=== PATIENT | female | born 1980 | race Caucasian/White ===

== ENCOUNTER → 2018-01-12 11:40 | Outpatient (CLI) | payer OTHER, MEDICAID, SELFPAY ==
[2018-01-12 12:27] LABS: Add Manual Diff / Slide Review NO; Basophils Percent Auto 0.9 % (0-2); Eosinophils Percent Auto 3.7 % (2-4); Hematocrit 42.3 % (36-46); Hemoglobin 14.7 g/dL (12.0-16.0); Mean Corpuscular HGB Conc 34.8 % (30-36); Mean Corpuscular Volume 91.8 fL (80-100); Monocytes Percent Auto 6.3 % (3-14); Neutrophils Absolute Auto 4500 /uL (3000-5900); Neutrophils Percent Auto 59.1 % (50-75); Platelet Count 298 X10^3/uL (150-400); White Blood Cell Count 7.6 X10^3/uL (4.5-11.0)
[2018-01-12 13:16] LABS: Thyroid Stimulating Hormone 1.17 uIU/mL (0.47-4.68)
== END ==
PROVIDERS: PCP Physician Assistant; Visit Provider Nurse Practitioner Family
DX: F41.9 Anxiety disorder, unspecified (principal)
CPT/HCPCS: 36415; 84443; 85025

== ENCOUNTER 2018-05-08 13:41 | Emergency (ER) | payer OTHER, MEDICAID, SELFPAY ==
[2018-05-08 13:49] VITALS: BP 117/80; PULSE 74; RESP 22; TEMP 36.8; O2SAT 100; BMI 38.0
--- NOTE | 2018-05-08 14:28 | ED.BACK ---
HPI - Back Pain/Injury General Chief Complaint: Back Pain/Injury Stated Complaint: back and abdominal pain since Time Seen by Provider: 05/08/18 14:12 Source: patient Mode of arrival: ambulatory Limitations: no limitations History of Present Illness HPI Narrative: Patient is a 38-year-old female who presents with right-sided back pain and leg pain. She works as a store stock help she is not sure exactly what happened. As she was seen evaluated at [facility] on 05/05/2018 for the same. She was given Toradol she was given a prescription for Percocet is discharged home. She said Percocet is not helping. She has been trying to stretch. The which was doing this morning when the pain got worse and she felt maybe she heard something pop. His she has radiating pain down the lateral side of her leg. She is denies is urinary or stool incontinence. MD Complaint: back pain Related Data Home Medications Medication Instructions Recorded Confirmed [TURMERIC CURCUMIN] 1 tab PO QDAY #0 09/27/17 05/08/18 alprazolam 0.5 mg tablet 0.5 mg PO BEDTIME tab 03/03/18 05/08/18 Vitamin D3 1 cap PO DAILY 05/08/18 05/08/18 amitriptyline 30 mg PO HS 05/08/18 05/08/18 cyclobenzaprine 2 tab PO HS PRN 05/08/18 05/08/18 oxycodone-acetaminophen 1 tab PO PRN PRN 05/08/18 05/08/18 Previous Rx's Medication Instructions Recorded cyclobenzaprine 10 mg PO TID PRN #14 tab 05/08/18 meloxicam 15 mg PO DAILY #14 tab 05/08/18 Allergies Allergy/AdvReac Type Severity Reaction Status Date / Time hydromorphone [From DILAUDID] Allergy Intermediate Headache Verified 05/08/18 13:54 and grinding teeth morphine [MORPHINE] Allergy Unknown HIVES Verified 05/08/18 13:54 hydrocodone [HYDROCODONE] AdvReac Intermediate UPSET Verified 05/08/18 13:54 STOMACH oxycodone [OXYCODONE] AdvReac Intermediate N/V Verified 05/08/18 13:54 Review of Systems Review of Systems GENERAL: Denies chills, fatigue, malaise, fever, sweats, travel HEENT: Denies sinus pain, ear pain, sore throat, difficulty swallowing, neck pain RESPIRATORY: Denies dyspnea, cough, wheezing, hemoptysis, sputum. CARDIOVASCULAR: Denies chest pain, palpitations, orthopnea, edema GASTROINTESTINAL: Denies nausea, vomiting, abdominal pain, diarrhea, constipation, melena. : Denies dysuria, frequency, incontinence, hematuria, urinary retention, flank pain. MUSCULOSKELETAL: See HPI SKIN: No rash, no erythema, no pruritus NEUROLOGIC: Denies weakness, dizziness, headache, numbness, change in speech, confusion PSYCHIATRIC: No concerning psychosocial issues. 12 point review of systems is negative except for those stated above and HPI [facility] Medical History Arthritis (Chronic Unknown) Asthma (Chronic Unknown) Carpal tunnel syndrome (Chronic Unknown) Degenerative disc disease (Chronic Unknown) Fibromyalgia (Chronic ~2015) Shoulder pain (Chronic Unknown) Hx of endometriosis (Resolved Unknown) Surgical History H/O laparoscopy (Resolved) H/O: (Resolved) History of bilateral tubal ligation (Resolved Unknown) Hx of abdominal hysterectomy (Resolved 05/2013) Hx of appendectomy (Resolved 10/2017) Hx of laminectomy (Resolved Unknown) Social History Smoking Status: Former smoker alcohol intake: current (social 1-3 times a year) substance use type: does not use Exam Initial Vital Signs Initial Vital Signs: Vital Signs Temperature 98.2 F 05/08/18 13:49 Pulse Rate 74 05/08/18 13:49 Respiratory Rate 22 05/08/18 13:49 Blood Pressure 117/80 05/08/18 13:49 Pulse Oximetry 100 05/08/18 13:49 GENERAL: Patient appears in pain crawled up CARDIOVASCULAR: peripheral pulses in tact, cap refill <2 sec RESPIRATORY: No respiratory distress, speaks in full sentences without difficulty BACK: Right lateral lumbar pain some midline pain no step-offs. Sensation in lower extremities is intact and equal able to move toes strength equal bilaterally EXTREMITIES: Normal range of motion, no clubbing or edema. Neurovascularly intact NEUROLOGICAL: Cranial nerves II through XII grossly intact. Normal gait and speech. SKIN: Warm, dry, no petechiae, no rashes or lesions. Course Orders Ordered: Discontinued Medications Diazepam (Valium) 5 mg PO NOW ONE Stop: 05/08/18 14:40 Last Admin: 05/08/18 14:47 Dose: 5 mg Ketorolac Tromethamine (Toradol) 60 mg IM NOW ONE Stop: 05/08/18 14:40 Last Admin: 05/08/18 14:46 Dose: 60 mg Vital Signs - 8 hr 05/08/18 13:49 05/08/18 16:03 Temperature 98.2 F Pulse Rate 74 56 L Respiratory Rate 22 13 Blood Pressure 117/80 101/60 Pulse Oximetry 100 99 MDM - Back Pain/Injury Medical Records Attestation: I reviewed the patient's medical records. From [facility] Lab Data Urine Dip Bedside Urine Glucose Negative Bedside Urine Bilirubin - Negative Bedside Urine Ketone - Negative Urine Specific [place] 1.015 Bedside Urine Occult Blood - Negative Bedside Urine pH 8.0 Bedside Urine Protein - Negative Bedside Urine Urobilinogen - Negative Bedside Urine Nitrite - Negative Bedside Urine Leukocytes - Negative Esterase Discharge Plan Departure Patient Disposition: Home Clinical Impression: Acute back pain with sciatica Discharge Date/Time: 05/08/18 16:06 Interventions: ED Discharge Assessment Last Done: 05/08/18 16:03 Instructions: DI for Back Pain With Sciatica Activity Restrictions/Additional Instructions: *You have been diagnosed with back pain *What to do: Heating pad, increase activity as tolerated light activity is encouraged, may require stretching *Continue to take medications as directed: Faxed to [facility] in [place] Meloxicam once a day as with do not take with other NSAIDS cyclobenzaprine 10 mg 3 times a day if needed for muscle spasm *Follow up with your primary care provider in 2-3 days *Return to ER if you should have urinary or stool incontinence, weakness or any new, worsening or concerning symptoms Prescriptions: New meloxicam 15 mg tablet 15 mg PO DAILY Qty: 14 RF: 0 cyclobenzaprine 5 mg tablet 10 mg PO TID PRN (Reason: muscle spasm) Qty: 14 RF: 0 No Action alprazolam 0.5 mg tablet 0.5 mg PO BEDTIME RF: 0 [TURMERIC CURCUMIN] 1 tab PO QDAY Qty: 0 RF: 0 oxycodone-acetaminophen 5-325 mg tablet 1 tab PO PRN PRN (Reason: Pain, Moderate) RF: 0 amitriptyline 10 MG tablet 30 mg PO HS RF: 0 Vitamin D3 1 cap PO DAILY RF: 0 cyclobenzaprine 5 MG tablet 2 tab PO HS PRN (Reason: Spasms) RF: 0
[2018-05-08] MEDS: KETOROLAC 60 MG/2 ML VIAL IM (14:46)
[2018-05-08] MEDS: diazePAM 5 MG TABLET PO (14:47)
[2018-05-08 16:03] VITALS: BP 101/60; PULSE 56; RESP 13; O2SAT 99
--- NOTE | 2018-05-08 16:06 | PC.NURSE ---
pt scripts sent to [facility] in [place], requested to be sent at [facility] [place] faxed per pt request
--- NOTE | 2018-05-11 17:16 | PC.NURSE ---
follow up calls, n/a
== END 2018-05-08 16:06 | disposition home or self-care (01) ==
PROVIDERS: Emergency Provider Emergency Medicine; Family Provider Physician Assistant; PCP Family Medicine
DX: S01.511A Laceration without foreign body of lip, initial encounter (principal)
CPT/HCPCS: 81003; 96372; 99283; J1885

== ENCOUNTER → 2018-05-09 11:33 | Outpatient (CLI) | payer OTHER, MEDICAID, SELFPAY ==
--- NOTE | 2018-05-09 11:39 | DI.RAD.S_ITS ---
PROCEDURE: XR SACRUM COCCYX MIN 2V INDICATIONS: acute hip/pelvic pain with hx of trauma TECHNIQUE: 3 views of the sacrum and coccyx acquired. COMPARISON: None. FINDINGS: Bones: No fractures or dislocations. No suspicious bony lesions. Soft tissues: Visualized bowel gas pattern is normal. No suspicious soft tissue densities. IMPRESSION: No visualized acute fracture or dislocation. However, if clinical concern and/or pain persist, short interval imaging followup in 7-10 days is recommended, as occult injury cannot be definitively excluded. Dictated by: Jovanna Hurt M.D. on 05/09/2018 at 15:57 Approved by: Jovanna Hurt M.D. on 05/09/2018 at 15:57
--- NOTE | 2018-05-09 11:39 | DI.RAD.S_ITS ---
PROCEDURE: XR LUMBAR SPINE 2-3V INDICATIONS: acute hip/pelvic pain with hx of trauma TECHNIQUE: 3 views of the lumbar spine were acquired. COMPARISON: None. FINDINGS: Bones: 5 [id number] vertebrae are present. There is multilevel tracer retrolisthesis of the lumbar spine. There severe disc and foraminal narrowing at L5-S1, moderate at L4-5. No vertebral body compression fractures. No suspicious bony lesions. Soft tissues: Overlying bowel gas pattern is normal. No suspicious soft tissue calcifications. IMPRESSION: Prominent degenerative hip and foraminal narrowing at L4-5 and L5-S1. Dictated by: Jovanna Hurt M.D. on 05/09/2018 at 15:54 Approved by: Jovanna Hurt M.D. on 05/09/2018 at 15:57
[2018-05-09 12:21] LABS: Add Manual Diff / Slide Review NO; Basophils Percent Auto 0.5 % (0-2); Eosinophils Percent Auto 4.3 % (2-4); Hematocrit 45.7 % (36-46); Hemoglobin 15.5 g/dL (12.0-16.0); Lymphocytes Percent Auto 31.7 % (25-40); Mean Corpuscular HGB Conc 33.8 % (30-36); Mean Corpuscular Volume 91.7 fL (80-100); Monocytes Percent Auto 5.6 % (3-14); Neutrophils Absolute Auto 4900 /uL (3000-5900); Neutrophils Percent Auto 57.9 % (50-75); Platelet Count 316 X10^3/uL (150-400); Red Blood Cell Count 4.98 X10^6/uL (4.0-5.2); Red Cell Distribution Width 13.1 % (11.6-14.8); White Blood Cell Count 8.5 X10^3/uL (4.5-11.0)
[2018-05-09 12:40] LABS: Hemoglobin A1C% w Est Avg Glu 5.3 % (4.0-6.0)
[2018-05-09 13:23] LABS: Alanine Aminotransferase 36 IU/L (9-52); Albumin 4.2 g/dL (3.5-5.0); Albumin Globulin Ratio 1.4 (1.0-2.8); Alkaline Phosphatase 53 U/L (38-126); Aspartate Aminotransferase 28 IU/L (14-36); BUN Creatinine Ratio 25.7 (6-22); Bilirubin Total 0.4 mg/dL (0.2-1.3); Bilirubin Unconjugated 0.1 mg/dL (0.0-1.1); Blood Urea Nitrogen 18 mg/dL (7-17); C-Reactive Protein Quant 0.6 mg/dL (<1.0); Calcium 8.9 mg/dL (8.4-10.2); Carbon Dioxide 28 mmol/L (22-32); Chloride 103 mmol/L (98-107); Cholesterol 205 mg/dL (140-199); Estimated Glomerular Filt Rate > 60.0 mL/min (>60); Globulin 2.9 g/dL (1.7-4.1); Glucose 85 mg/dL (70-100); HDL Cholesterol 57 mg/dL (40-60); LDL Cholesterol Calculated 92 mg/dL (<100); Potassium 4.2 mmol/L (3.4-5.1); Sodium 143 mmol/L (137-145); Total Protein 7.1 g/dL (6.3-8.2); Triglycerides 278 mg/dL (35-150)
[2018-05-09 15:14] LABS: Vitamin D 25 Hydroxy (D3) 39.9 ng/mL (30.0-100.0)
[2018-05-09 20:28] LABS: HEMOLYSIS 19 (0-50); Vitamin B12 524 pg/mL (239-931)
== END ==
PROVIDERS: PCP Family Medicine; Visit Provider Nurse Practitioner Family
DX: M54.40 Lumbago with sciatica, unspecified side (principal); R10.9 Unspecified abdominal pain
CPT/HCPCS: 36415; 72100; 72220; 80053; 80061; 80076; 82306; 82607; 83036; 85025; 86140

== ENCOUNTER → 2018-05-12 13:36 | Outpatient (CLI) | payer OTHER, MEDICAID, SELFPAY ==
--- NOTE | 2018-05-12 13:38 | DI.CT.S_ITS ---
PROCEDURE: CT LUMBAR SPINE WO CON INDICATIONS: Low back pain. Right leg radicular pain TECHNIQUE: Noncontrast 3 mm thick sections acquired from the T12 level to the sacrum. Sagittal and coronal reformats were constructed. For radiation dose reduction, the following was used: automated exposure control. COMPARISON: [facility], , L-SPINE WITHOUT CONTRAST, 05/23/2014, 10:43. FINDINGS: Image quality: Excellent. Bones: There is normal bony alignment. No acute vertebral body compression fractures. No suspicious lytic or blastic bony lesions. Central spinal caliber is of normal overall caliber. No pars defects. T12-L1: Normal appearance L1-L2: Normal appearance L2-L3: Normal appearance L3-L4: Normal appearance L4-L5: Loss of disc height. Mild, diffuse disc bulge. Mild bilateral facet hypertrophy. Moderate narrowing of the central canal. Mild right and moderate left neural foraminal narrowing. No definite neural impingement. L5-S1: Loss of disc height. Mild, diffuse disc bulge. Mild bilateral facet hypertrophy. Mild narrowing of the central canal. Severe bilateral neural foraminal narrowing with slight flattening deformity of the exiting L5 nerve roots. Soft tissues: No retroperitoneal masses or hematomas. Visualized aorta is normal in caliber. IMPRESSION: 1. Moderate L4-L5 and L5-S1 degenerative disc disease. 2. Mild bilateral L4-L5 and L5-S1 facet arthropathy. 3. Moderate L4-L5 central canal narrowing. Mild L5-S1 central canal narrowing. 4. Severe bilateral L5-S1 neural foraminal narrowing. Mild right and moderate left L4-L5 neural foraminal narrowing. 5. Flat and deformity the exiting L5 nerve roots bilaterally secondary to neural foraminal narrowing. Please correlate with clinical data. Dictated by: Annel Del Valle MD, PhD on 05/12/2018 at 15:53 Approved by: Annel Del Valle MD, PhD on 05/12/2018 at 15:58
--- NOTE | 2018-05-12 13:38 | DI.CT.S_ITS ---
PROCEDURE: CT ABDOMEN PELVIS W CON INDICATIONS: General abdominal pain and hx of adhesions TECHNIQUE: After the administration of oral and intravenous contrast, 5 mm thick sections acquired from the diaphragms to the symphysis. 5 mm thick coronal and sagittal reformats were performed. For radiation dose reduction, the following was used: automated exposure control, adjustment of mA and/or kV according to patient size. COMPARISON: [facility], CT, ABDOMEN/PELVIS WITH CONTRAST, 01/03/2017, 19:40. FINDINGS: Image quality: Excellent. ABDOMEN: Lung bases: Lung bases are clear. Heart size is normal. Solid organs: Liver is normal in size and enhancement. Gallbladder is partially contracted. Biliary system is non-dilated. Pancreas enhances normally. Spleen is normal in size and enhancement. No adrenal nodules. Kidneys are normal in size and enhancement, without hydronephrosis. Peritoneum and bowel: Stomach, small bowel, and colon loops are normal in caliber and wall thickness. No free fluid or air. Nodes and vessels: No retroperitoneal or mesenteric adenopathy. Aorta and inferior vena cava are normal in caliber. Miscellaneous: No ventral hernias. PELVIS: Genitourinary: Bladder wall thickness is normal. Apparent prior hysterectomy. Miscellaneous: No inguinal hernias or adenopathy. Bones: No suspicious bony lesions. No vertebral body compression fractures. IMPRESSION: No sign of intestinal obstruction or perforation. The gallbladder is partially contracted but shows no inflammation. At the right lower quadrant no CT evidence of acute appendicitis is present. There are no areas of inflamed diverticula. A definite source of current symptomatology is not seen. Prior hysterectomy. Dictated by: Leoncio Troncoso M.D. on 05/12/2018 at 16:28 Approved by: Leoncio Troncoso M.D. on 05/12/2018 at 16:29
== END ==
PROVIDERS: PCP Family Medicine; Visit Provider Nurse Practitioner Family
DX: M51.16 Intervertebral disc disorders with radiculopathy, lumbar region (principal); R10.84 Generalized abdominal pain; M51.17 Intervertebral disc disorders with radiculopathy, lumbosacral region; M47.26 Other spondylosis with radiculopathy, lumbar region; M47.27 Other spondylosis with radiculopathy, lumbosacral region; M48.061 Spinal stenosis, lumbar region without neurogenic claudication; M48.07 Spinal stenosis, lumbosacral region
CPT/HCPCS: 72131; 74177; Q9967

== ENCOUNTER → 2018-07-07 19:47 | Outpatient (CLI) | payer OTHER, MEDICAID, SELFPAY ==
--- NOTE | 2018-07-07 19:50 | DI.MRI.S_ITS ---
PROCEDURE: MR LUMBAR SPINE WO CON INDICATIONS: Acute back pain and hx of adhesions TECHNIQUE: Noncontrast sagittal T1 spin echo and T2 fast echo, sagittal STIR, axial T1 and T2 fast spin echo through the lumbar spine. In cases with scoliosis, additional coronal T2 fast spin echo may be performed. COMPARISON: [facility], , L-SPINE WITHOUT CONTRAST, 05/23/2014, 10:43. FINDINGS: Image quality: Excellent. Alignment and Curvature: There is normal bony alignment. Bone Marrow: Marrow is of normal overall signal. No acute vertebral body compression fractures. Spinal Cord: Conus medullaris terminates at the T12 level. Visualized cord demonstrates normal signal and size. Paraspinous Soft Tissues: No paravertebral masses. L1-L2: Normal appearance. L2-L3: Normal appearance. L3-L4: No canal stenosis. Moderate facet ligamentum flavum hypertrophy. No neuroforaminal narrowing. These findings are unchanged when compared with the study dated 05/23/14. L4-L5: Patient is status post left hemilaminectomy. Moderate disc desiccation and height loss. Broad-based disc bulge. Moderate facet ligamentum flavum hypertrophy. No canal stenosis. No neuroforaminal narrowing. These findings are unchanged when compared with the study dated 05/23/14. L5-S1: Moderate disc desiccation and height loss. Broad-based disc bulge. Moderate facet hypertrophy. No canal stenosis. Mild right and moderate left neuroforaminal stenosis. These findings are unchanged. IMPRESSION: 1. Disc desiccation and height loss in the lower lumbar spine unchanged in extent when compared with the study dated 05/23/14. 2. Stable postsurgical changes and moderate left neuroforaminal stenosis at L5-S1 when compared with the prior study. 3. No canal stenosis of the lumbar spine. No new neuroforaminal stenosis. Dictated by: Mariposa Miller M.D. on 07/10/2018 at 10:50 Approved by: Mariposa Miller M.D. on 07/10/2018 at 10:58
== END ==
PROVIDERS: PCP Family Medicine; Visit Provider Family Medicine
DX: M51.16 Intervertebral disc disorders with radiculopathy, lumbar region (principal); M51.17 Intervertebral disc disorders with radiculopathy, lumbosacral region
CPT/HCPCS: 72148

== ENCOUNTER → 2019-02-13 09:24 | Outpatient (CLI) | payer OTHER, MEDICAID, SELFPAY ==
--- NOTE | 2019-02-13 09:25 | DI.RAD.S_ITS ---
PROCEDURE: XR KNEE LT 3V INDICATIONS: left knee pain exacerbation TECHNIQUE: 3 views of the knee were acquired. COMPARISON: None. FINDINGS: Bones: No fractures or dislocations. No suspicious bony lesions. Mild osteoarthritic changes are present. Soft tissues: No joint effusion. No suspicious soft tissue calcifications. IMPRESSION: Mild osteoarthritis. Dictated by: Erica Angel M.D. on 02/13/2019 at 11:12 Approved by: Erica Angel M.D. on 02/13/2019 at 11:13
== END ==
PROVIDERS: PCP Family Medicine; Visit Provider Nurse Practitioner Family
DX: M25.562 Pain in left knee (principal); M17.12 Unilateral primary osteoarthritis, left knee
CPT/HCPCS: 73562

== ENCOUNTER → 2019-05-10 13:57 | Outpatient (CLI) | payer OTHER, MEDICAID, SELFPAY ==
--- NOTE | 2019-05-10 14:21 | DI.MRI.S_ITS ---
PROCEDURE: MR LUMBAR SPINE WO CON INDICATIONS: Low back pain TECHNIQUE: Noncontrast sagittal T1 spin echo and T2 fast echo, sagittal STIR, axial T1 and T2 fast spin echo through the lumbar spine. In cases with scoliosis, additional coronal T2 fast spin echo may be performed. COMPARISON: [facility], MR, MR LUMBAR SPINE WO CON, 07/07/2018, 20:01. [facility], CR, XR LUMBAR SPINE WITH OLBIQUES PLUS FLEXION EXTENSION, 04/18/2019, 15:52. FINDINGS: Image quality: Excellent. Alignment and Curvature: 5 lumbar type vertebral bodies are present by plain film. There is normal bony alignment. Bone Marrow: Marrow is of normal overall signal. No acute vertebral body compression fractures. Moderate reactive signal within the adjacent to the L5-S1 intervertebral disc. Mild reactive signal within the endplates adjacent to the L4-L5 intervertebral disc. Left L4-L5 hemilaminotomy. Spinal Cord: Conus medullaris terminates at the lower L1 level. Visualized cord demonstrates normal signal and size. Paraspinous Soft Tissues: No paravertebral masses. L1-L2: Mild facet and ligamentum flavum hypertrophy. No significant canal, nor foraminal stenosis. L2-L3: Mild facet and ligament flavum hypertrophy. No significant canal, nor foraminal stenosis. L3-L4: Mild facet and ligamentum flavum hypertrophy. No significant canal, nor foraminal stenosis. L4-L5: Moderate disc height loss and desiccation. Mild diffuse disc bulge with superimposed small central protrusion. Mild facet hypertrophy bilaterally. No significant canal stenosis. Mild right and increased, moderate left subarticular foraminal stenosis. L5-S1: Moderate disc height loss and desiccation. Mild diffuse disc bulge. Mild bilateral facet hypertrophy. Mild canal stenosis. Mild right and moderate left subarticular foraminal stenosis. No change. IMPRESSION: 1. Multilevel degenerative disc and facet disease, as well as ligamentum flavum hypertrophy and epidural lipomatosis. 2. Mild multilevel canal stenoses. 3. Multilevel foraminal stenoses, worst at L4-L5 and L5-S1 on the left, where there are moderate foraminal stenoses present. Dictated by: Manuel Guzman M.D. on 05/10/2019 at 15:54 Approved by: Manuel Guzman M.D. on 05/10/2019 at 15:59
== END ==
PROVIDERS: Family Provider Family Medicine; PCP Family Medicine; Visit Provider Physical Medicine & Rehabilitation Pain Medicine
DX: M54.5 Low back pain (principal); M51.36 Other intervertebral disc degeneration, lumbar region; M51.37 Other intervertebral disc degeneration, lumbosacral region; M48.061 Spinal stenosis, lumbar region without neurogenic claudication; M48.07 Spinal stenosis, lumbosacral region; E88.2 Lipomatosis, not elsewhere classified
CPT/HCPCS: 72148

== ENCOUNTER → 2019-06-21 10:39 | Outpatient (CLI) | payer OTHER, MEDICAID, SELFPAY ==
[2019-06-21 11:34] LABS: BUN Creatinine Ratio 24.3 (6-22); Blood Urea Nitrogen 17 mg/dL (7-17); Calcium 9.1 mg/dL (8.4-10.2); Carbon Dioxide 25 mmol/L (22-32); Chloride 107 mmol/L (98-107); Estimated Glomerular Filt Rate > 60.0 mL/min (>60); Glucose 95 mg/dL (70-100); HEMOLYSIS < 15 (0-50); Potassium 4.3 mmol/L (3.4-5.1); Sodium 140 mmol/L (137-145)
[2019-06-21 11:52] LABS: Vitamin D 25 Hydroxy (D3) 42.7 ng/mL (30.0-100.0)
== END ==
PROVIDERS: Family Provider Family Medicine; PCP Family Medicine; Visit Provider Student in an Organized Health Care Education/Training Program
DX: E55.9 Vitamin D deficiency, unspecified (principal); Z79.1 Long term (current) use of non-steroidal anti-inflammatories (NSAID)
CPT/HCPCS: 36415; 80048; 82306

== ENCOUNTER 2019-10-03 16:09 | Emergency (ER) | payer OTHER, MEDICAID, SELFPAY ==
[2019-10-03 16:13] VITALS: BP 147/77; PULSE 79; RESP 16; TEMP 36.5; O2SAT 100; BMI 39.1
--- NOTE | 2019-10-03 16:34 | DI.RAD.S_ITS ---
PROCEDURE: XR KNEE LT 3V INDICATIONS: L knee pain, knee buckled. TECHNIQUE: 3 views of the knee were acquired. COMPARISON: [facility], CR, XR KNEE ARTHRITIC SERIES LT, 09/27/2019, 12:51. [facility], CR, XR KNEE LT 3V, 02/13/2019, 9:25. FINDINGS: Bones: No fractures or dislocations. No suspicious bony lesions. Soft tissues: Mild joint effusion. No suspicious soft tissue calcifications. IMPRESSION: Mild effusion. No visualized acute fracture or dislocation. However, if clinical concern and/or pain persist, short interval imaging followup in 7-10 days is recommended, as occult injury cannot be definitively excluded. Dictated by: Jovanna Hurt M.D. on 10/03/2019 at 16:51 Approved by: Jovanna Hurt M.D. on 10/03/2019 at 16:54
--- NOTE | 2019-10-03 17:25 | ED.LOWEXIN ---
HPI - Extremity Injury (Lower) <DERECK Rodriguez - Last Filed: 10/03/19 20:50> General Chief Complaint: Extremity Injury, Lower Stated Complaint: left knee buckled on her Time Seen by Provider: 10/03/19 16:11 Source: patient Mode of arrival: Ambulatory Limitations: no limitations History of Present Illness HPI Narrative: 39yo male presents to the emergency department complaining of left knee pain. She states she has a history of osteoarthritis in this knee is undergoing physical therapy in taking walks a cam. However, yesterday she stepped down and her knee was hyperextended, she reported significant pain immediately of a 03/10 with swelling and ecchymosis. She states the pain is worse with weight-bearing and movement. Patient states she tried to get into her orthopedic but was told to continue with physical therapy. Patient denies any other concerns such as hip pain, head trauma, chest pain, shortness of breath, nausea, vomiting, diarrhea, or any other concerns. Related Data Home Medications Medication Instructions Recorded Confirmed Vitamin D3 1 cap PO DAILY 05/08/18 06/21/19 Turmeric/Curcumin See Rx Instructions .ROUTE .COMPLEX 05/09/18 06/21/19 omega-3 fatty acids 1,000 mg 1,000 mg PO DAILY 08/18/18 10/03/19 capsule multivitamin See Rx Instructions .ROUTE .COMPLEX 10/03/19 Previous Rx's Medication Instructions Recorded alprazolam 0.5 mg tablet 0.5 mg PO BEDTIME #15 tab 06/21/19 cyclobenzaprine 10 mg tablet 10 mg PO BEDTIME PRN #30 tab 06/21/19 meloxicam 15 mg tablet 15 mg PO DAILY PRN #90 tab 06/21/19 lidocaine 5 % topical patch 1 patch TOP DAILY #30 each 07/17/19 amitriptyline 50 mg tablet 50 mg PO DAILY #30 tab 09/14/19 hydrocodone-acetaminophen [[place]] 1 tab PO Q8H PRN #5 tab 10/03/19 Allergies Allergy/AdvReac Type Severity Reaction Status Date / Time hydromorphone [From DILAUDID] Allergy Intermediate Headache Verified 10/03/19 16:21 and grinding teeth morphine [MORPHINE] Allergy Intermediate HIVES Verified 06/21/19 09:51 Review of Systems <DERECK Rodriguez - Last Filed: 10/03/19 20:50> Review of Systems Narrative: REVIEW OF SYSTEMS: GENERAL: Denies fever or chills. HENT: No head trauma. EYES: No double vision or vision loss. CARDIOVASCULAR: No chest pain or syncope. RESPIRATORY: No shortness of breath or cough. GASTROINTESTINAL: No nausea, vomiting, diarrhea, or constipation. MUSCULOSKELETAL: Complains of left knee pain, see HPI. INTEGUMENTARY: No rash, lesions, or pruritus. NEURO: No numbness, tingling. PSYCH: No behavior or mood changes. Patient History <DERECK Rodriguez - Last Filed: 10/03/19 20:50> Medical History Arthritis (Chronic Unknown) Asthma (Chronic Unknown) Carpal tunnel syndrome (Chronic Unknown) Colitis (Inactive) Degenerative disc disease (Chronic Unknown) Fibromyalgia (Chronic ~2015) Hx of endometriosis (Resolved Unknown) Shoulder pain (Chronic Unknown) Surgical History H/O laparoscopy (Resolved) H/O: (Resolved) History of bilateral tubal ligation (Resolved Unknown) Hx of abdominal hysterectomy (Resolved 05/2013) Hx of appendectomy (Resolved 10/2017) Hx of laminectomy (Resolved Unknown) Family History Grandmother Breast cancer Social History Smoking Status: Former smoker second hand exposure: Yes alcohol intake: current substance use type: does not use Smoking Status: Former smoker alcohol intake frequency: 0-2 drinks per day Substance Use Type: marijuana Exam <DERECK Rodriguez - Last Filed: 10/03/19 20:50> Initial Vital Signs Initial Vital Signs: Vital Signs Temperature 97.7 F 10/03/19 16:13 Pulse Rate 79 10/03/19 16:13 Respiratory Rate 16 10/03/19 16:13 Blood Pressure 147/77 H 10/03/19 16:13 Pulse Oximetry 100 10/03/19 16:13 PHYSICAL EXAMINATION: GENERAL: Well groomed, alert, and cooperative. Answers questions promptly and appropriately. Vital signs noted. HENT: Normocephalic, atraumatic. EYES: Symmetrical, sclera white, no periorbital swelling. CARDIOVASCULAR: S1 and S2 sounds normal. Regular rate and rhythm, no murmurs, clicks, or bruits. No pedal edema. RESPIRATORY: Normal respiratory rate, trachea midline, airway patent. No stridor, nasal flaring or accessory muscle use. Lungs are clear in all [place]. MUSCULOSKELETAL: Ecchymosis noted around patella, tenderness to medial aspect of joint line. No effusion noted around superior part of left knee. Decreased flexion due to pain, and able to perform drawer test due to decreased range of motion. Positive Sarwat sign medial meniscus. Patient walks with limp due to pain. EXTREMITIES: CMS intact. Pedal pulses 2+ and intact bilaterally. SKIN: Warm, dry, soft, appropriate color for ethnicity. No lesions, rashes, or wounds. NEURO: Alert and Oriented X 3. No sensory deficits. PSYCH: Appropriate affect and mood. <Blair Delvalle DO - Last Filed: 10/04/19 07:05> Initial Vital Signs Initial Vital Signs: Vital Signs Temperature 97.7 F 10/03/19 16:13 Pulse Rate 79 10/03/19 16:13 Respiratory Rate 16 10/03/19 16:13 Blood Pressure 147/77 H 10/03/19 16:13 Pulse Oximetry 100 10/03/19 16:13 Course <DERECK Rodriguez - Last Filed: 10/03/19 20:50> Orders Ordered: Discontinued Medications Hydrocodone Bitart/Acetaminophen ([place] 5/325) 1 tab PO NOW ONE Stop: 10/03/19 17:22 Last Admin: 10/03/19 17:37 Dose: 1 tab Documented by: ELIUD Ketorolac Tromethamine (Toradol) 30 mg IM NOW ONE Stop: 10/03/19 17:22 Last Admin: 10/03/19 17:38 Dose: 30 mg Documented by: ELIUD Vital Signs Vital signs: Vital Signs - 8 hr 10/03/19 16:13 10/03/19 18:17 Temperature 97.7 F Pulse Rate 79 89 Respiratory Rate 16 12 Blood Pressure 147/77 H Blood Pressure [Right Arm] 157/95 H Pulse Oximetry 100 100 <Blair Delvalle DO - Last Filed: 10/04/19 07:05> Orders Ordered: Discontinued Medications Hydrocodone Bitart/Acetaminophen ([place] 5/325) 1 tab PO NOW ONE Stop: 10/03/19 17:22 Last Admin: 10/03/19 17:37 Dose: 1 tab Documented by: ELIUD Ketorolac Tromethamine (Toradol) 30 mg IM NOW ONE Stop: 10/03/19 17:22 Last Admin: 10/03/19 17:38 Dose: 30 mg Documented by: ELIUD Vital Signs Vital signs: Vital Signs - 8 hr 10/03/19 16:13 10/03/19 18:17 Temperature 97.7 F Pulse Rate 79 89 Respiratory Rate 16 12 Blood Pressure 147/77 H Blood Pressure [Right Arm] 157/95 H Pulse Oximetry 100 100 MDM - Extremity Injury (Lower) <DERECK Rodriguez - Last Filed: 10/03/19 20:50> Medical Records Attestation: I reviewed the patient's medical records. Lab Data Attestation: I reviewed the patient's lab results. Imaging Data Extremity x-ray #1: Radiologist's Impression: [address] [id number] XRay Report Signed Patient: Osiris Aponte CMR#: [id number] : 1980Acct:[id number] Age/Sex: 39 / FDate of Service: 10/03/19 Loc: ED Accession Number: [id number] Procedure: XR knee LT 3V Ordering Provider: Sonia Haji PROCEDURE: XR KNEE LT 3V INDICATIONS: L knee pain, knee buckled. TECHNIQUE: 3 views of the knee were acquired. COMPARISON: [facility], CR, XR KNEE ARTHRITIC SERIES LT, 09/27/2019, 12:51. [facility], CR, XR KNEE LT 3V, 02/13/2019, 9:25. FINDINGS: Bones: No fractures or dislocations. No suspicious bony lesions. Soft tissues: Mild joint effusion. No suspicious soft tissue calcifications. IMPRESSION: Mild effusion. No visualized acute fracture or dislocation. However, if clinical concern and/or pain persist, short interval imaging followup in 7-10 days is recommended, as occult injury cannot be definitively excluded. Dictated by: Jovanna Hurt M.D. on 10/03/2019 at 16:51 Approved by: Jovanna Hurt M.D. on 10/03/2019 at 16:54 MDM Narrative Medical decision making narrative: This is a 39-year-old female presenting to the emergency department for a left knee pain after hyper extension of knee with noticeable swelling and bruising. X-rays negative for any fractures. Knee is tender on examination and has decreased flexion due to pain. Patient is a history of osteoarthritis but this appears to be an additional injury. Differential includes most likely meniscus injury, ligamentous injury such as ACL or PCL, and soft tissue bruising. Patient was encouraged to wear a hinged brace for support to prevent her knee from continuing to give out. Patient was encouraged to follow up with her orthopedic in the next few weeks for re-evaluation. She was encouraged to continue physical therapy but inform her therapist of this current injury. Patient was given a small dose of pain medication to help with severe pain at this time as she is already taking meloxicam and cyclobenzaprine. Patient was encouraged to return emergency department for any new or worsening symptoms. Patient agreed to plan of care verbalized understanding. Discharge Plan Departure Patient Disposition: Home Clinical Impression: Knee pain, left Qualifiers: Chronicity: acute Qualified Code(s): M25.562 - Pain in left knee Discharge Date/Time: 10/03/19 18:20 Instructions: DI for Knee Pain Activity Restrictions/Additional Instructions: Thank you for entrusting me with your care today. As discussed, your x-rays negative for any fractures. I suggest using a hinged brace to help with any support, this also allows you to keep your range of motion. Please follow-up with your orthopedic as suggested in the next 1-2 weeks for further evaluation. Please continue with physical therapy. Return to the emergency department for any new or worsening symptoms such as severe calf pain, abdominal pain, uncontrollable vomiting, fevers, or any other concerns. I have prescribed a small dose of Vicodin which has been sent to [facility] in [place], this is a narcotic medication, this medication can make you drowsy. Do not drive while using this medication or perform activities that require mental alertness. These medications can also make you constipated, please use xsoi-vhd-hjhqmul docusate sodium as needed for constipation. Prescriptions: New hydrocodone-acetaminophen [[place]] 5-325 mg tablet 1 tab PO Q8H PRN (Reason: pain) Qty: 5 RF: 0 No Action Turmeric/Curcumin See Rx Instructions .ROUTE .COMPLEX RF: 0 omega-3 fatty acids [Fish Oil Concentrate] 1,000 mg capsule 1,000 mg PO DAILY RF: 0 lidocaine 5 % adhesive patch,medicated 1 patch TOP DAILY Qty: 30 RF: 0 amitriptyline 50 mg tablet 50 mg PO DAILY Qty: 30 RF: 5 cyclobenzaprine 10 mg tablet 10 mg PO BEDTIME PRN (Reason: muscle spasm) Qty: 30 RF: 2 meloxicam 15 mg tablet 15 mg PO DAILY PRN (Reason: muscle spasm) Qty: 90 RF: 0 alprazolam 0.5 mg tablet 0.5 mg PO BEDTIME Qty: 15 RF: 2 multivitamin See Rx Instructions .ROUTE .COMPLEX RF: 0 Vitamin D3 1 cap PO DAILY RF: 0 Referrals: Aubrey Summers MD [Primary Care Provider] - <Blair Delvalle DO - Last Filed: 10/04/19 07:05> Sign Out Provider Sign Out Attestation: Dr Delvalle Co-Sign Statement: I was available for consultation during this patient's emergency department visit. This chart is signed by myself for administrative purposes only. I did not have direct contact with this patient during this visit. They were seen independently by the APC.
[2019-10-03] MEDS: HYDROCODONE/ACET 5/325 TABLET 1 TAB PO (17:37)
[2019-10-03] MEDS: KETOROLAC 60 MG/2 ML VIAL 30 MG IM (17:38)
[2019-10-03 18:17] VITALS: BP 157/95; PULSE 89; RESP 12; O2SAT 100
== END 2019-10-03 18:20 | disposition home or self-care (01) ==
PROVIDERS: Emergency Provider Nurse Practitioner; Family Provider Family Medicine; PCP Student in an Organized Health Care Education/Training Program
DX: M25.562 Pain in left knee (principal)
CPT/HCPCS: 73562; 96372; 99283; 99284; J1885

== ENCOUNTER → 2019-12-03 15:16 | Outpatient (CLI) | payer OTHER, MEDICAID, SELFPAY ==
[2019-12-03 15:49] LABS: Appearance Urine UA CLEAR; Bilirubin Urine UA NEGATIVE (NEGATIVE); Color Urine UA YELLOW; Glucose Urine UA NEGATIVE (Negative); Ketones Urine UA NEGATIVE (NEGATIVE); Leukocyte Esterase Urine UA 1+ (NEGATIVE); Nitrite Urine UA NEGATIVE (Negative); Occult Blood Urine UA TRACE-LYSED (Negative); Protein Urine UA NEGATIVE (Negative); Specific Gravity Urine UA 1.015 (1.000-1.035); Urobilinogen Urine UA 0.2 E.U./dL (0.2)
[2019-12-03 15:53] LABS: pH Urine UA 7.5 (4.5-8.0)
[2019-12-03 15:56] LABS: Bacteria Urine Occasional (0-1); Culture Indicated Urine Specimen Cultured; RBC Urine 0-1/HPF (0-5/HPF); WBC Urine 0-1/HPF (0-5/HPF)
== END ==
PROVIDERS: Family Provider Family Medicine; PCP Student in an Organized Health Care Education/Training Program; Referring Provider Student in an Organized Health Care Education/Training Program; Visit Provider Student in an Organized Health Care Education/Training Program
DX: R39.89 Other symptoms and signs involving the genitourinary system (principal)
CPT/HCPCS: 81001; 87077; 87086; 87186

== ENCOUNTER → 2020-03-28 18:31 | Outpatient (CLI) | payer OTHER, MEDICAID, SELFPAY ==
--- NOTE | 2020-03-28 18:33 | DI.MRI.S_ITS ---
PROCEDURE: MR CERVICAL SPINE WO CON INDICATIONS: Neck pain; bilateral arm parasthesia TECHNIQUE: Noncontrast sagittal T1 spin echo and T2 fast spin echo, sagittal STIR, foraminal oblique sagittal T2 fast spin echo, and axial gradient echo or T2 fast spin echo through the cervical spine. COMPARISON: None. FINDINGS: Image quality: Excellent. Alignment and Curvature: There is normal bony alignment. Bone Marrow: Marrow demonstrates normal overall signal. Spinal Cord: Visualized spinal cord has normal size and signal. No cerebellar tonsillar herniation. Paraspinous Soft Tissues: No paravertebral masses. Prevertebral soft tissues are normal in thickness. C2-C3: No canal stenosis or foraminal stenosis. C3-C4: Moderate diffuse disc bulge mildly indenting on the ventral cord. Mild central canal stenosis. AP diameter of the canal is 9 mm. Mild bilateral uncovertebral joint hypertrophy and foraminal disc bulges. Mild right facet hypertrophy. Mild and right and ixwv-nu-rtnwmojz left foraminal stenosis. C4-C5: Very minimal central posterior osteophyte versus disc protrusion. No canal stenosis. Bilateral facet hypertrophy. Mild right foraminal narrowing. C5-C6: Diffuse disc bulge. No central canal stenosis. AP diameter of the canal is 1.1 cm. Bilateral uncovertebral joint hypertrophy. Bilateral facet hypertrophy. Moderate to severe right foraminal narrowing with impingement on the right C6 nerve root. Mild left foraminal narrowing. C6-C7: Mild disc bulge. No significant central canal stenosis. Bilateral uncovertebral joint hypertrophy and facet hypertrophy. Moderate right foraminal narrowing with flattening deformity on the exiting right C7 nerve root. Moderate to severe left foraminal narrowing with left C7 nerve root impingement. C7-T1: No canal stenosis or foraminal stenosis. IMPRESSION: 1. Diffuse cervical spondylitic change. 2. At C3-C4, there is mild central canal stenosis. 3. At C5-C6, there is moderate to severe right foraminal narrowing. 4. At C6-C7, there is moderate right foraminal narrowing and moderate to severe left foraminal narrowing. Dictated by: Delbert Sorto M.D. on 03/31/2020 at 9:37 Approved by: Delbert Sorto M.D. on 03/31/2020 at 9:46
--- NOTE | 2020-03-28 18:33 | DI.MRI.S_ITS ---
PROCEDURE: MR THORACIC SPINE WO CON INDICATIONS: Neck pain; bilateral arm parasthesia TECHNIQUE: Noncontrast sagittal T1 spine echo and T2 fast spin echo, sagittal STIR, axial T1 and T2 fast spin echo through the thoracic spine. COMPARISON: [facility], , MR CERVICAL SPINE WO CON, 03/28/2020, 18:48. FINDINGS: Image quality: Excellent. Alignment and Curvature: There is normal bony alignment. Bone Marrow: Marrow is of normal overall signal. No acute vertebral body compression fractures. Spinal Cord: Visualized spinal cord is normal in size and signal. Paraspinous Soft Tissues: No paravertebral masses. Miscellaneous: On axial images, central canal and foramina appear widely patent at all scanned levels. There is a small left paracentral disc protrusion at T5-T6 without canal stenosis. Reference image 03/05 (sagittal T2). IMPRESSION: 1. Small left paracentral disc protrusion at T5-T6 without canal stenosis, of uncertain clinical significance. 2. No canal stenosis or foraminal stenosis. Dictated by: Delbert Sorto M.D. on 03/31/2020 at 11:54 Approved by: Delbert Sorto M.D. on 03/31/2020 at 12:01
== END ==
PROVIDERS: Family Provider Family Medicine; PCP Student in an Organized Health Care Education/Training Program; Referring Provider Student in an Organized Health Care Education/Training Program; Visit Provider Student in an Organized Health Care Education/Training Program
DX: M54.2 Cervicalgia (principal); M48.02 Spinal stenosis, cervical region; M47.812 Spondylosis without myelopathy or radiculopathy, cervical region; M51.24 Other intervertebral disc displacement, thoracic region; R20.2 Paresthesia of skin; M54.9 Dorsalgia, unspecified
CPT/HCPCS: 72141; 72146

== ENCOUNTER → 2020-05-13 18:20 | Outpatient (CLI) | payer OTHER, MEDICAID, SELFPAY ==
--- NOTE | 2020-05-13 18:24 | DI.RAD.S_ITS ---
PROCEDURE: XR CERVICAL SPINE 4V OR 5V INDICATIONS: cervical pain TECHNIQUE: 5 views of the cervical spine acquired. COMPARISON: [facility], MR, MR CERVICAL SPINE WO CON, 03/28/2020, 18:48. FINDINGS: Bones: No fractures or dislocations to the superior endplate of T1 level. Oblique images demonstrate mild right greater than left bony foraminal stenoses most pronounced at C5-6 and C6-7. Straightening of cervical lordosis which may be due to patient positioning and/or concurrent muscle spasms. Multilevel cervical spondylitic changes C3-4 through C6-7. Soft tissues: No prevertebral soft tissue swelling. IMPRESSION: 1. Cervical spine without acute osseous abnormalities. Multilevel cervical spondylosis. 2. Mild right greater than left bony neuroforaminal stenosis at C5-6 and C6-7. 3. Mild straightening of normal cervical lordosis likely related to positioning and/or concurrent muscle spasms. Dictated by: Joesph Teague M.D. on 05/14/2020 at 9:16 Approved by: Joesph Teague M.D. on 05/14/2020 at 9:20
--- NOTE | 2020-05-13 18:24 | DI.RAD.S_ITS ---
PROCEDURE: XR THORACIC SPINE 3V INDICATIONS: thoracic pain TECHNIQUE: 3 views of the thoracic spine were acquired. COMPARISON: None. FINDINGS: Bones: No fractures or dislocations. No suspicious bony lesions. 12 pairs of ribs are noted, and appear intact where visualized. Minimal thoracic spondylitic changes seen throughout the thoracic spine. Findings are most pronounced in the mid and lower thoracic spine. Soft tissues: No paravertebral stripe thickening. IMPRESSION: Thoracic spine without acute osseous abnormalities. Minimal multilevel thoracic spondylosis. Dictated by: Joesph Teague M.D. on 05/14/2020 at 9:20 Approved by: Joesph Teague M.D. on 05/14/2020 at 9:21
--- NOTE | 2020-05-13 18:24 | DI.RAD.S_ITS ---
PROCEDURE: XR LUMBAR SPINE MIN 4V INDICATIONS: LBP TECHNIQUE: 5 views of the lumbar spine were acquired. COMPARISON: [facility], , XR LUMBAR SPINE 2-3V, 05/09/2018, 11:32. FINDINGS: Bones: 5 nonrib-bearing vertebrae are present. There is multilevel trace retrolisthesis. Moderate to severe disc and foraminal narrowing is present L5-S1, moderate to severe disc space narrowing and aqgn-xz-pysdoizf foraminal narrowing at L4-5. No vertebral body compression fractures. No suspicious bony lesions. Soft tissues: Overlying bowel gas pattern is normal. No suspicious soft tissue calcifications. Oblique images: No pars defects. IMPRESSION: Degenerative changes most notable at L5-S1. Dictated by: Jovanna Hurt M.D. on 05/13/2020 at 18:43 Approved by: Jovanna Hurt M.D. on 05/13/2020 at 18:44
== END ==
PROVIDERS: Family Provider Family Medicine; PCP Student in an Organized Health Care Education/Training Program; Referring Provider Physical Medicine & Rehabilitation; Visit Provider Physical Medicine & Rehabilitation
DX: M54.5 Low back pain (principal); M47.817 Spondylosis without myelopathy or radiculopathy, lumbosacral region; M54.2 Cervicalgia; M47.812 Spondylosis without myelopathy or radiculopathy, cervical region; M48.02 Spinal stenosis, cervical region; M54.6 Pain in thoracic spine; R20.2 Paresthesia of skin
CPT/HCPCS: 72050; 72072; 72110

== ENCOUNTER → 2020-06-02 13:31 | Outpatient (CLI) | payer OTHER, MEDICAID, SELFPAY ==
[2020-06-04 08:19] LABS: COVID19 Sendout Not Detected (Not Detect)
== END ==
PROVIDERS: Family Provider Family Medicine; PCP Student in an Organized Health Care Education/Training Program; Visit Provider Physician Assistant
DX: Z11.59 Encounter for screening for other viral diseases (principal)
CPT/HCPCS: 87635

== ENCOUNTER 2020-06-05 12:01 | Outpatient (CLI) | payer OTHER, MEDICAID, SELFPAY ==
[2020-06-05] VITALS (9 sets, daily range): BP systolic 105–155; BP diastolic 61–85; PULSE 12–84; RESP 12–96; TEMP 36.2; O2SAT 96–100
--- NOTE | 2020-06-05 12:03 | DI.RAD.S_ITS ---
PROCEDURE: PAIN L/SI FACET INJ/BLK 1STL INDICATIONS: SPONDYLOSIS COMPARISON: [facility], CR, XR LUMBAR SPINE MIN 4V, 05/13/2020, 18:13. FINDINGS: Fluoroscopic spot filming was performed to verify placement of spinal needles at the left L4-5 and L5-S1 level(s), as labeled on the films. Appropriate location(s) of the needle tip(s) was confirmed by injection of iodinated contrast. IMPRESSION: Intraprocedural examination within normal limits. Dictated by: Scott Vazquez M.D. on 06/05/2020 at 13:19 Approved by: Scott Vazquez M.D. on 06/05/2020 at 13:20
[2020-06-05] MEDS: fentaNYL 100 MCG/2 ML INJ 50 MCG IV (13:24)
[2020-06-05] MEDS: MIDAZOLAM 5 MG/5 ML VIAL IV (13:24)
[2020-06-05] MEDS: IOPAMIDOL 15 ML VIAL 3 ML INJ (13:30)
[2020-06-05] MEDS: BUPIVACAINE 0.5% (PF) VIAL 2 ML INJ (13:30)
[2020-06-05] MEDS: BETAMETHASONE 30 MG/5 ML MDV 12 MG INJ (13:30)
--- NOTE | 2020-06-05 13:40 | P.PCN_ITS ---
Date/Time/Diagnoses Date of procedure: 06/05/20 Time of procedure: 13:41 Pre-procedure diagnosis: 1. FACET ARTHROPATHY, 2. AXIAL LBP, 3. MULTILEVEL DDD Post-procedure diagnosis: same Procedure Notes Procedure: 1. FLUOROSCOPICALLY GUIDED CONTRAST CONTROLLED FACET JOINT INJECTIONS LEFT L4/5, L5/S1 Indications: Osiris is referred by Dr. Summers for treatment of Axial LBP Physician: Devin Malin Total Fluoroscopy time (seconds): 11 Total sedation minutes: 14 Complications: none Procedure in detail & Post-procedure care: FINDINGS Multilevel Facet Arthropathy with Clinically significant axial LBP DESCRIPTION OF PROCEDURE Fluoroscopically guided, contrast-controlled left L4/5, L5/S1 facet joint injections. Following review of allergy and review of potential side effects and complications, including, but not necessarily limited to, infection, allergic reaction, local tissue breakdown, stroke, temporary or permanent nerve injury, paralysis, and possible , the patient indicated that the patient understood and agreed to proceed. An informed consent document was signed by the patient, witnessed by a nurse, and placed in the patient's chart. Additionally, other t reatment options including medications, modalities, and physical therapy were reviewed with the patient. After review of previous anaesthesic history and IV conscious sedation the patient was deemed safe to proceed with today?s procedure with IV conscious sedation as ASA class II designation. Safety time-out was performed to confirm patient ID, procedure to be performed and site of procedure. IV sedation was accomplished with a combination of 2mg of Versed and 50mcg of Fentanylwas administered by the RN after DO order, titrated to patient comfort during the course of the procedure while the patient remained responsive to all verbal commands. In the prone position, following sterile prep and drape of the lumbar region, the posterior aspect of the left L4/5, L5/S1 facet joints were identified fluoroscopically. The skin was anesthetized via a 25-gauge 1.5-inch needle with 1% lidocaine solution into the corresponding facet joints. At this point, a 22- gauge 5-inch spinal needle was atraumatically introduced and advanced under fluoroscopic guidance into the corresponding facet joints. Following negative aspiration, injections of approximately 0.2-cc of Isovue 200 confirmed intera rticular placement without vascular uptake. Radiological data, including multiple fluoroscopic views of the lumbosacral spine, reveal a spinal needle at the left L4/5, L5/S1 facet joints. Subsequent views show flow of contrast material both superiorly and inferiorly within the joint space without vascular or intrathecal uptake. At this point, a total of 0.5cc including a mixture of 0.25cc Marcaine and 0.25cc betamethasone was injected without complication into each of the corresponding facet joints. The procedure tolerated the procedure well without signs or symptoms of complications prior to transfer to the recovery area continued monitoring without incident. The patient was then transferred to the recovery area where they were observed for an appropriate period of time after the injection. The patient reported a VAS score of 7 prior to the procedure and a post-procedure VAS of 0. POST OP INSTRUCTIONS The patient was provided a Pain Log to continue to record their response to the target-specific procedure prior to follow-up visit with their referring physician. Additionally, specific post-injection care instructions and a contact number to our office were provided if concerns arise regarding possible complications associated with the procedure are suspected.
== END 2020-06-05 14:25 | disposition home or self-care (01) ==
PROVIDERS: Family Provider Family Medicine; PCP Student in an Organized Health Care Education/Training Program; Referring Provider Physical Medicine & Rehabilitation; Visit Provider Physical Medicine & Rehabilitation
DX: M47.816 Spondylosis without myelopathy or radiculopathy, lumbar region (principal); M47.817 Spondylosis without myelopathy or radiculopathy, lumbosacral region; M54.5 Low back pain; M51.36 Other intervertebral disc degeneration, lumbar region; M51.37 Other intervertebral disc degeneration, lumbosacral region
CPT/HCPCS: 64493; 64494; 99152; J0702; J2250; J3010

== ENCOUNTER → 2020-06-16 15:46 | Outpatient (CLI) | payer OTHER, MEDICAID, SELFPAY ==
[2020-06-16 16:05] LABS: Appearance Urine UA CLEAR; Bilirubin Urine UA NEGATIVE (NEGATIVE); Color Urine UA YELLOW; Glucose Urine UA NEGATIVE (Negative); Ketones Urine UA NEGATIVE (NEGATIVE); Leukocyte Esterase Urine UA TRACE (NEGATIVE); Nitrite Urine UA NEGATIVE (Negative); Occult Blood Urine UA 1+ (Negative); Protein Urine UA NEGATIVE (Negative); Specific Gravity Urine UA 1.015 (1.000-1.035); Urobilinogen Urine UA 0.2 E.U./dL (0.2)
[2020-06-16 16:12] LABS: pH Urine UA 5.5 (4.5-8.0)
[2020-06-16 16:17] LABS: Bacteria Urine Occasional (0-1); Culture Indicated Urine Specimen Cultured; RBC Urine 1-5/HPF (0-5/HPF); Squamous Epithelial Cell Urine 0-1 /HPF (0-5/HPF); WBC Urine 5-10/HPF (0-5/HPF)
== END ==
PROVIDERS: Family Provider Family Medicine; PCP Student in an Organized Health Care Education/Training Program; Referring Provider Student in an Organized Health Care Education/Training Program; Visit Provider Student in an Organized Health Care Education/Training Program
DX: R30.0 Dysuria (principal)
CPT/HCPCS: 81001; 87077; 87086; 87186

== ENCOUNTER → 2020-09-12 16:46 | Outpatient (CLI) | payer OTHER, MEDICAID, SELFPAY ==
[2020-09-12 17:23] LABS: Appearance Urine UA CLEAR; Bilirubin Urine UA NEGATIVE (NEGATIVE); Color Urine UA YELLOW; Glucose Urine UA NEGATIVE (Negative); Ketones Urine UA NEGATIVE (NEGATIVE); Leukocyte Esterase Urine UA NEGATIVE (NEGATIVE); Nitrite Urine UA NEGATIVE (Negative); Occult Blood Urine UA 1+ (Negative); Protein Urine UA NEGATIVE (Negative); Urobilinogen Urine UA 0.2 E.U./dL (0.2)
[2020-09-12 17:28] LABS: pH Urine UA 6.5 (4.5-8.0)
[2020-09-12 17:37] LABS: Add Manual Diff / Slide Review NO; Basophils Absolute Auto 100 /uL (0-100); Basophils Percent Auto 0.6 % (0-2); Eosinophils Absolute Auto 200 /uL (0-450); Eosinophils Percent Auto 2.2 % (2-4); Hematocrit 44.3 % (36-46); Hemoglobin 14.6 g/dL (12.0-16.0); Lymphocytes Absolute Auto 2400 /uL (1100-4500); Lymphocytes Percent Auto 22.5 % (25-40); Mean Corpuscular Hemoglobin 30.1 PG (26-34); Mean Corpuscular Volume 91.4 fL (80-100); Monocytes Absolute Auto 500 /uL (0-900); Monocytes Percent Auto 4.9 % (3-14); Neutrophils Absolute Auto 7400 /uL (1500-7000); Neutrophils Percent Auto 69.8 % (50-75); Platelet Count 331 X10^3/uL (150-400); Red Blood Cell Count 4.85 X10^6/uL (4.0-5.2); Red Cell Distribution Width 13.1 % (11.6-14.8); White Blood Cell Count 10.6 X10^3/uL (4.5-11.0)
[2020-09-12 17:38] LABS: BUN Creatinine Ratio 24.6 (6-22); Blood Urea Nitrogen 17 mg/dL (7-17); C-Reactive Protein Quant 0.7 mg/dL (<1.0); Calcium 8.9 mg/dL (8.4-10.2); Carbon Dioxide 32 mmol/L (22-32); Chloride 102 mmol/L (98-107); Estimated Glomerular Filt Rate > 60.0 mL/min (>60); Glucose 94 mg/dL (70-100); HEMOLYSIS < 15 (0-50); Potassium 3.5 mmol/L (3.4-5.1); Sodium 137 mmol/L (137-145); Uric Acid 5.8 mg/dL (2.5-6.2)
[2020-09-12 17:42] LABS: Rheumatoid Factor < 8.6 IU/mL (<12.0)
[2020-09-12 17:48] LABS: Bacteria Urine Occasional (0-1); Culture Indicated Urine Cult Not Indicated; RBC Urine 10-30/HPF (0-5/HPF); Squamous Epithelial Cell Urine None Seen (0-5/HPF); WBC Urine 0-1/HPF (0-5/HPF)
[2020-09-12 18:00] LABS: Erythrocyte Sedimentation Rate 6 MM/HR (0-20)
[2020-09-12 18:23] LABS: Vitamin B12 561 pg/mL (239-931)
[2020-09-12 18:27] LABS: TSH w/ Reflex to FT4 1.37 uIU/mL (0.47-4.68)
[2020-09-15 14:43] LABS: ANA Screen, IFA Negative (.)
== END ==
PROVIDERS: Family Provider Family Medicine; PCP Student in an Organized Health Care Education/Training Program; Referring Provider Student in an Organized Health Care Education/Training Program; Visit Provider Student in an Organized Health Care Education/Training Program
DX: M13.0 Polyarthritis, unspecified (principal); M47.816 Spondylosis without myelopathy or radiculopathy, lumbar region; R20.2 Paresthesia of skin; R30.0 Dysuria
CPT/HCPCS: 36415; 80048; 81001; 82607; 84443; 84550; 85025; 85651; 86038; 86140; 86430

== ENCOUNTER → 2020-09-27 15:53 | Outpatient (CLI) | payer OTHER, MEDICAID, SELFPAY ==
[2020-09-27 16:03] LABS: Bacteria Urine None Seen
[2020-09-27 16:07] LABS: Appearance Urine UA CLEAR; Bilirubin Urine UA NEGATIVE (NEGATIVE); Color Urine UA YELLOW; Glucose Urine UA NEGATIVE (Negative); Ketones Urine UA NEGATIVE (NEGATIVE); Leukocyte Esterase Urine UA NEGATIVE (NEGATIVE); Nitrite Urine UA NEGATIVE (Negative); Occult Blood Urine UA TRACE-LYSED (Negative); Protein Urine UA NEGATIVE (Negative); Urobilinogen Urine UA 0.2 E.U./dL (0.2)
[2020-09-27 16:34] LABS: Culture Indicated Urine Cult Not Indicated; RBC Urine 1-5/HPF (0-5/HPF); WBC Urine 1-5/HPF (0-5/HPF)
== END ==
PROVIDERS: Family Provider Family Medicine; PCP Student in an Organized Health Care Education/Training Program; Referring Provider Student in an Organized Health Care Education/Training Program; Visit Provider Student in an Organized Health Care Education/Training Program
DX: R30.0 Dysuria (principal)
CPT/HCPCS: 81001

== ENCOUNTER → 2020-10-07 13:11 | Outpatient (CLI) | payer OTHER, MEDICAID, SELFPAY ==
[2020-10-07 14:34] LABS: COVID19 -Nasal RAPID Negative (Negative)
== END ==
PROVIDERS: Family Provider Family Medicine; PCP Student in an Organized Health Care Education/Training Program; Visit Provider Physical Medicine & Rehabilitation
DX: Z20.822 Contact with and (suspected) exposure to COVID-19 (principal)
CPT/HCPCS: 87635; C9803

== ENCOUNTER 2020-10-09 12:33 | Outpatient (CLI) | payer OTHER, MEDICAID, SELFPAY ==
[2020-10-09] VITALS (8 sets, daily range): BP systolic 112–140; BP diastolic 55–89; PULSE 74–88; RESP 16–20; TEMP 36.7; O2SAT 96–100
--- NOTE | 2020-10-09 12:33 | DI.RAD.S_ITS ---
PROCEDURE: PAIN SI JOINT INJECTION INDICATIONS: SACROILIAC PAIN COMPARISON: None. FINDINGS: Fluoroscopic spot filming was performed to verify placement of spinal needles at the left sacroiliac joint level(s), as labeled on the films. Appropriate location(s) of the needle tip(s) was confirmed by injection of iodinated contrast. IMPRESSION: Fluoroscopic guidance for sacroiliac joint injection. Please see procedural note for further details. Dictated by: Joesph Teague M.D. on 10/09/2020 at 14:54 Approved by: Joesph Teague M.D. on 10/09/2020 at 14:54
[2020-10-09] MEDS: MIDAZOLAM 5 MG/5 ML VIAL IV (13:38)
[2020-10-09] MEDS: fentaNYL 100 MCG/2 ML INJ 50 MCG IV (13:38)
[2020-10-09] MEDS: IOPAMIDOL 15 ML VIAL 3 ML INJ (13:40)
[2020-10-09] MEDS: BETAMETHASONE 30 MG/5 ML MDV 12 MG INJ (13:40)
[2020-10-09] MEDS: BUPIVACAINE 0.5% (PF) VIAL 2 ML INJ (13:40)
--- NOTE | 2020-10-09 13:50 | PM.PROC.IR.1 ---
Date/Time/Diagnoses Date of procedure: 10/09/20 Time of procedure: 13:50 Pre-procedure diagnosis: Sacroiliac Joint Pain/DJD Post-procedure diagnosis: same Procedure Notes Procedure: Fluoroscopically guided contrast controlled left sacroiliac joint injection Indications: Osiris is referred by Dr. Summers for treatment of left sacroiliac joint DJD Physician: Devin Malin Total Fluoroscopy time (seconds): 14 Total sedation minutes: 7 Complications: none Procedure in detail & Post-procedure care: DESCRIPTION OF PROCEDURE Fluoroscopic guided, contrast controlled left sacroiliac joint injection Following review of allergies and review of potential side effects and complications, including, but not necessarily limited to, infection, allergic reaction, local tissue breakdown, temporary as well as permanent nerve injury, paralysis, stroke and possible , the patient indicated that they understood and agreed to proceed. An informed consent was signed by the patient, witnessed by a nurse, and placed in the patient's chart. Additionally, other treatment options including modalities, medications, and physical therapy were reviewed with the patient. After review of previous anaesthesic history and IV conscious sedation the patient was deemed safe to proceed with today?s procedure with IV conscious sedation as ASA class II designation. Safety time-out was performed to confirm patient ID, procedure to be performed and site of procedure. IV sedation was accomplished with a combination of 2mg of Versed and 50mcg of Fentanyl administered by the RN after DO order, titrated to patient comfort during the course of the procedure while the patient remained responsive to all verbal commands. In the prone position following sterile prep and drape of the pelvic region, the hyper lucency on in the inferior aspect of the left sacroiliac joint was identified fluoroscopically the skin was anesthetized be a 25 gauge 1 eventual with approximately 2cc of 1% lidocaine solution. At this point, a 22 gauge 3inch spinal needle was atraumatically introduced and advanced under fluoroscopic guidance into the inferior aspect of the left sacroiliac joint. Following negative aspiration, approximately 0.3cc of Isovue-300 was injected confirming intra-articular placement without vascular uptake. Radiographic data, including multiple fluoroscopic views of the pelvis, reveals a spinal needle in the left sacroiliac joint hyper lucent zone. Subsequent view show flow contrast tear superiorly and inferiorly within the joint capsule without vascular intrathecal uptake. At this point a total of 1cc or 0.5% Marcaine was combined with 1cc of 6mg of betamethasone was injected without incident. The patient tolerated the procedure well without signs or symptoms of complications prior to transfer to the recovery area for further monitoring. The patient was then transferred to the recovery area with a bur observed for an appropriate time after the injection. The patient reverted a vas score of 7 prior to the procedure and postprocedure vas of 1. POSTOP INSTRUCTIONS The patient was provided with a pain like to continue to record the patient's response to the target specific procedure prior to the patient's follow-up visit with the referring physician. Additionally, specific post injection care instructions and a contact number to our office were provided if concerns arise regarding the possible complications associated with procedure are suspected.
== END 2020-10-09 14:10 | disposition home or self-care (01) ==
LOC: RAD 12:33
PROVIDERS: Family Provider Family Medicine; PCP Student in an Organized Health Care Education/Training Program; Referring Provider Physical Medicine & Rehabilitation; Visit Provider Physical Medicine & Rehabilitation
DX: M53.3 Sacrococcygeal disorders, not elsewhere classified (principal); M46.1 Sacroiliitis, not elsewhere classified
CPT/HCPCS: 27096; J0702; J2250; J3010

== ENCOUNTER → 2020-12-02 08:03 | Outpatient (CLI) | payer OTHER, MEDICAID, SELFPAY ==
[2020-12-02 15:09] LABS: COVID19 -Nasal RAPID Negative (Negative)
== END ==
PROVIDERS: Family Provider Family Medicine; PCP Student in an Organized Health Care Education/Training Program; Visit Provider Physical Medicine & Rehabilitation
DX: Z20.822 Contact with and (suspected) exposure to COVID-19 (principal)
CPT/HCPCS: 87635; C9803

== ENCOUNTER 2020-12-04 13:52 | Outpatient (CLI) | payer OTHER, MEDICAID, SELFPAY ==
[2020-12-04] VITALS (8 sets, daily range): BP systolic 123–161; BP diastolic 59–81; PULSE 76–99; RESP 12–21; TEMP 36.3; O2SAT 95–100
--- NOTE | 2020-12-04 13:55 | DI.RAD.S_ITS ---
PROCEDURE: PAIN L/SI FACET INJ/BLK 1STL INDICATIONS: SPONDYLOSIS COMPARISON: [facility], , PAIN L/SI FACET INJ/BLK 1STL, 06/05/2020, 13:28. FINDINGS: Fluoroscopic spot filming was performed to verify placement of spinal needles at the L4, L5, and S1 levels on the left, as labeled on the films. Appropriate location(s) of the needle tip(s) was confirmed by injection of iodinated contrast. IMPRESSION: Intraprocedural examination within normal limits. Dictated by: Scott Vazquez M.D. on 12/04/2020 at 14:47 Approved by: Scott Vazquez M.D. on 12/04/2020 at 14:47
[2020-12-04] MEDS: MIDAZOLAM 5 MG/5 ML VIAL IV (14:55)
[2020-12-04] MEDS: fentaNYL 100 MCG/2 ML INJ 50 MCG IV (14:55)
[2020-12-04] MEDS: BUPIVACAINE 0.5% (PF) VIAL 5 ML INJ (15:01)
[2020-12-04] MEDS: IOPAMIDOL 15 ML VIAL 3 ML INJ (15:01)
[2020-12-04] MEDS: LIDOCAINE 1% 20 ML 10 ML INJ (15:01)
--- NOTE | 2020-12-04 15:11 | P.PCN_ITS ---
Date/Time/Diagnoses Date of procedure: 12/04/20 Time of procedure: 15:12 Pre-procedure diagnosis: 1. FACET ARTHROPATHY Post-procedure diagnosis: same Procedure Notes Procedure: 1. Left L4, L5 and S1 MB BLOCKS Indications: Osiris is referred by Dr. Summers for treatment of Left Axial LBP. Physician: Devin Malin Total Fluoroscopy time (seconds): 5 Total sedation minutes: 10 Complications: none Procedure in detail & Post-procedure care: DESCRIPTION OF PROCEDURE Fluoroscopically guided, contrast-controlled left L4, L5 and S1 medial branch blocks with 0.5cc of 0.5% Marcaine. Following review of allergy and review of potential side effects and complications, including, but not necessarily limited to, infection, allergic reaction, local tissue breakdown, nerve injury, paralysis, stroke and possible , the patient indicated that the patient understood and agreed to proceed. An informed consent document was signed by the patient, witnessed by a nurse, and placed in the patient's chart. After review of previous anaesthesic history and IV conscious sedation the patient was deemed safe to proceed with today?s procedure with IV conscious sedation as ASA class II designation. Safety time-out was performed to confirm patient ID, procedure to be performed and site of procedure. IV sedation was accomplished with a combination of 2mg of Versed and 50mcg of Fentanyl was administered by the RN after DO order, titrated to patient comfort during the course of the procedure while the patient remained responsive to all verbal commands. In the prone position, following sterile prep and drape of the lumbar region, the left L4, L5 and S1 anatomical location of the medial branch of the dorsal ramus was identified fluoroscopically. Subsequently an anesthetic skin wheal using 1% lidocaine solution was initiated at each of the anatomical spots. Subsequently then a 22-gauge 3.5-inch spinal needle was atraumatically introduced and advanced under fluoroscopic guidance at each of the corresponding sites at the left L4, L5 and S1 MB. After negative aspiration, 0.2cc of Isovue 200 was injected, confirming placement without vascular or intrathecal uptake. Subsequently then 0.5cc of 0.5% Marcaine solution was injected at each of the corresponding sites at the left L4, L5 and S1 medial branch locations. The patient tolerated the procedure well without signs or symptoms of complications. The patient tolerated the procedure well without signs or symptoms of complications prior to transfer to the recovery area continued monitoring without incident. Post-procedure, the patient was monitored initiating provocative activities to measure the amount of relief from block of the facetogenic pain. The patient reported a VAS of 7 prior to the procedure and a post-procedure VAS of 1. It has been a pleasure to assist in the diagnostic and therapeutic care of your patient. POST OP INSTRUCTIONS The patient was provided with a Pain Log to complete over the next several hours and subsequent days prior to the patient's follow up with the ordering physician. If the patient has manager of project management relief to the solution applied, then they may be a candidate for medial branch rhizotomy. The patient is aware, was provided, once again, with a Pain Log and will follow up with the referring physician for review and clinical correlation.
== END 2020-12-04 15:30 | disposition home or self-care (01) ==
LOC: RAD 13:54
PROVIDERS: Family Provider Family Medicine; PCP Student in an Organized Health Care Education/Training Program; Referring Provider Physical Medicine & Rehabilitation; Visit Provider Physical Medicine & Rehabilitation
DX: M47.816 Spondylosis without myelopathy or radiculopathy, lumbar region (principal); M47.817 Spondylosis without myelopathy or radiculopathy, lumbosacral region
CPT/HCPCS: 64493; 64494; 99152; J2250; J3010

== ENCOUNTER → 2021-02-24 08:28 | Outpatient (CLI) | payer OTHER, MEDICAID, SELFPAY ==
[2021-02-24 14:47] LABS: COVID19 -Nasal RAPID Negative (Negative)
== END ==
PROVIDERS: Family Provider Family Medicine; PCP Student in an Organized Health Care Education/Training Program; Visit Provider Physical Medicine & Rehabilitation
DX: Z20.822 Contact with and (suspected) exposure to COVID-19 (principal)
CPT/HCPCS: 87635; C9803

== ENCOUNTER 2021-02-26 07:25 | Outpatient (CLI) | payer OTHER, MEDICAID, SELFPAY ==
[2021-02-26] VITALS (10 sets, daily range): BP systolic 126–142; BP diastolic 78–111; PULSE 81–100; RESP 14–18; TEMP 36.6; O2SAT 96–100
--- NOTE | 2021-02-26 07:27 | DI.RAD.S_ITS ---
PROCEDURE: PAIN L/S MED/LAT N RFA INDICATIONS: SPONDYLOSIS COMPARISON: None. FINDINGS: Fluoroscopic spot filming was performed to verify placement of spinal needles at the L4, L5, S1 level(s), as labeled on the films. Appropriate location(s) of the needle tip(s) was confirmed by injection of iodinated contrast. Dictated by: Jhony Robles M.D. on 02/26/2021 at 11:59 Approved by: Jhony Robles M.D. on 02/26/2021 at 12:00
[2021-02-26] MEDS: fentaNYL 100 MCG/2 ML INJ 50 MCG IV (08:20)
[2021-02-26] MEDS: BUPIVACAINE 0.5% (PF) VIAL 5 ML INJ (08:26)
[2021-02-26] MEDS: LIDOCAINE 1% 20 ML INJ (08:26)
[2021-02-26] MEDS: MIDAZOLAM 5 MG/5 ML VIAL IV (08:27)
--- NOTE | 2021-02-26 08:53 | P.PCN_ITS ---
Date/Time/Diagnoses Date of procedure: 02/26/21 Time of procedure: 08:53 Pre-procedure diagnosis: 1. RECALCITRANT FACET ARTHROPATHY Post-procedure diagnosis: same Procedure Notes Procedure: 1. LEFT L4 AND L5 MEDIAL BRANCH RADIOFREQUENCY NEUROTOMY AND LEFT S1 DORSAL RAMUS RADIOFREQUENCY NEUROTOMY, Indications: Osiris is referred by Dr. Summers for treatment of facet arthropathy. Physician: Devin Malin Total Fluoroscopy time (seconds): 11 Total sedation minutes: 23 Complications: none Procedure in detail & Post-procedure care: DESCRIPTION OF PROCEDURE Left L4 and L5 medial branch radiofrequency neurotomy and left S1 dorsal ramus branch radiofrequency neurotomy under fluoroscopy with conscious sedation. The patient is well known to this clinic having undergone previous facet injections with good but temporary relief. The patient has experienced appropriate, concordant relief with previous facet and median branch blocks but the patient's pain has been recalcitrant to further conservative measures. Therefore, based upon the patient's relief and persistent symptoms, the patient is considered an appropriate candidate for facet rhizotomy. All of the patient's questions regarding the risks versus benefits of the procedure, including, but not limited to, bleeding, infection, temporary as well as lasting nerve injury, paralysis, stroke, and , as well treatment alternatives were answered to satisfaction. After obtaining informed consent, denial of pertinent drug allergies, as well as being made aware of the potential risks of bleeding, infection, spinal cord trauma, paralysis, temporary and permanent nerve damage, seizure, stroke, and possible , the patient was brought to the fluoroscopy suite and positioned prone on the fluoroscopy table. The lumbar region was prepped with Betadine and covered with a fenestrated drape in the usual sterile fashion. Appropriate monitors applied including pulse oximeter, pulse, and blood pressure for regular monitoring throughout the procedure. IV sedation was accomplished with a combination of 3mg of Versed and 50mcg of Fentanyl titrated to patient comfort during the course of the procedure while the patient remained responsive to all verbal commands. After local infiltration using 1% lidocaine, under fluoroscopic guidance, a 10- cm RF insulated needle with a 10-mm active tip was positioned parallel to the junction of the left sacral ala and the superior articulating process where the S1 dorsal ramus resides. Needle placement was confirmed with sensory stimulation at 50 Hz, with motor stimulation of .5v on the left which produced local stimulation without radicular component. The stimulation was then increased to 2v with, once again, only local multifidus stimulation without radicular component. This was then followed by two discreet lesions performed at 80 degrees Celsius for 90 seconds each. The needle was then removed and the identical procedure was performed along the length of the left L5 medial branch with motor stimulation at .7v on the left. The identical procedure was once again performed along the length of the left L4 medial branch with motor stimulation of .5v on the left. The patient tolerated the procedure well without signs or symptoms of complications prior to transfer to the recovery area continued monitoring without incident. The patient was then transferred to the recovery area where they were observed for an appropriate period of time after the injection. The patient was then transferred to the recovery area where they were observed for an appropriate period of time after the injection. The patient reported a VAS score of 7 prior to the procedure and a post- procedure VAS of 0. POST OP INSTRUCTIONS The patient was provided a Pain Log to continue to record the patient's response to the target-specific procedure prior to the patient's follow-up visit with the referring physician. Additionally, specific post-injection care instructions and a contact number to our office were provided if concerns arise regarding possible complications associated with the procedure are suspected.
== END 2021-02-26 09:02 | disposition home or self-care (01) ==
LOC: RAD 07:26
PROVIDERS: Family Provider Student in an Organized Health Care Education/Training Program; PCP Student in an Organized Health Care Education/Training Program; Referring Provider Physical Medicine & Rehabilitation; Visit Provider Physical Medicine & Rehabilitation
DX: M47.816 Spondylosis without myelopathy or radiculopathy, lumbar region (principal); M47.817 Spondylosis without myelopathy or radiculopathy, lumbosacral region
CPT/HCPCS: 64635; 64636; 99152; J2250; J3010

== ENCOUNTER 2021-08-13 17:36 | Emergency (ER) | payer OTHER, MEDICAID, SELFPAY ==
[2021-08-13] VITALS (19 sets, daily range): BP systolic 118–184; BP diastolic 61–121; PULSE 75–99; RESP 14–37; TEMP 36.4; O2SAT 79–100; BMI 42.3
--- NOTE | 2021-08-13 18:14 | ED_ITS ---
HPI - General Adult General Chief complaint: Hypertension Stated complaint: BP Issues, Left Lung Pain, Throbbing Head Time Seen by Provider: 08/13/21 18:14 History of Present Illness HPI narrative: 41-year-old female former smoker presents with her significant other and a chief complaint of elevated blood pressure in the 180s over the past 24 hours or so along with headache and some left-sided chest pain. She states her headache has been gradually worsening over the past few days and seems to be squeezing in nature. She denies any obvious provocation or palliation. She denies any blurred vision, trouble speech or focal neurologic deficits. She has had no trauma or injury and denies any fever. She has no neck pain. She states it is moderate in intensity it did not seem to be helped by Tylenol. She states that she has had a left-sided chest pain earlier in the day but that is gone now. She denies any radiation of this discomfort and no obvious provocation or palliation, though it does seem to have gone away as her blood pressure drops. Related Data Home Medications Medication Instructions Recorded Confirmed Vitamin D3 1 cap PO DAILY 05/08/18 05/18/21 Turmeric/Curcumin See Rx Instructions .ROUTE .COMPLEX 05/09/18 05/18/21 omega-3 fatty acids 1,000 mg 1,000 mg PO DAILY 08/18/18 05/18/21 capsule (Fish Oil Concentrate) multivitamin See Rx Instructions .ROUTE .COMPLEX 10/03/19 05/18/21 naproxen sodium 220 mg capsule 220 mg PO BID PRN 08/04/20 05/18/21 (Aleve) Previous Rx's Medication Instructions Recorded lidocaine 5 % topical patch 1 patch TOP DAILY #30 each 07/17/19 amitriptyline 50 mg tablet 50 mg PO BEDTIME #90 tab 02/03/21 albuterol sulfate 90 mcg/actuation 2 puff INHALATION Q4-6H PRN #18 g 02/17/21 aerosol inhaler amitriptyline 25 mg tablet 25 mg PO BEDTIME #90 tab 03/31/21 cyclobenzaprine 10 mg tablet 10 mg PO TID PRN #30 tab 05/15/21 hydrocodone 5 mg-acetaminophen 325 1 - 2 tab PO DAILY PRN #10 tab 08/04/21 mg tablet ketorolac 10 mg tablet 10 mg PO Q6H PRN #14 tab 08/13/21 Allergies Allergy/AdvReac Type Severity Reaction Status Date / Time hydromorphone [From DILAUDID] Allergy Intermediate Headache Verified 05/18/21 08:10 and grinding teeth morphine [MORPHINE] Allergy Intermediate HIVES Verified 05/18/21 08:10 nortriptyline Allergy Intermediate severe Verified 05/18/21 08:10 anxiety buspirone AdvReac Intermediate Muscle pain Verified 05/18/21 08:10 Review of Systems Review of Systems Narrative: GENERAL: Denies chills, fatigue, malaise, fever, sweats. HEENT: Denies sinus pain, ear pain, sore throat, difficulty swallowing, dizziness. RESPIRATORY: Denies dyspnea, cough, wheezing, hemoptysis, sputum. CARDIOVASCULAR: See HPI GASTROINTESTINAL: Denies nausea, vomiting, abdominal pain, diarrhea, constipation, melena. : Denies dysuria, frequency, incontinence, hematuria, urinary retention. MUSCULOSKELETAL: denies weakness, joint pain, or bony pain SKIN: Denies rash, skin lesions, or other NEUROLOGIC: See HPI PSYCHIATRIC: No concerning psychosocial issues. 12 point review of systems is negative except for those stated above Patient History Medical History Arthritis (Unknown) Asthma (Unknown) Carpal tunnel syndrome (Unknown) Colitis Costochondritis Degenerative disc disease (Unknown) Facet arthropathy, lumbar Fibromyalgia (~2015) Hx of endometriosis (Unknown) Lumbar post-laminectomy syndrome Ovarian cyst Sacral dysfunction Shoulder pain (Unknown) Surgical History H/O laparoscopy H/O: History of bilateral tubal ligation (Unknown) Hx of abdominal hysterectomy (05/2013) Hx of appendectomy (10/2017) Hx of laminectomy (Unknown) Family History Grandmother Breast cancer Mother Hypertension Social History Smoking Status: Former smoker second hand exposure: Yes alcohol intake: current substance use type: does not use Smoking Status: Former smoker alcohol intake frequency: 0-2 drinks per day Substance Use Type: marijuana Exam Narrative Exam Narrative: GENERAL: [41] year old patient appears stated age. Well-developed patient, in mild distress. HEAD: Atraumatic. Normocephalic. EYES: Pupils equal round and reactive. Extraocular motions intact. No scleral icterus. No injection or drainage. ENT: Nose without bleeding, purulent drainage. Throat without erythema, tonsi llar hypertrophy or exudate. Airway patent. NECK: Trachea midline. Non tender CARDIOVASCULAR: Regular rate and rhythm without murmurs, gallops, or rubs. RESPIRATORY: Clear to auscultation. Breath sounds equal bilaterally. No wheezes, rales, or rhonchi. GASTROINTESTINAL: Abdomen soft, non-tender, nondistended. EXTREMITIES: No edema or joint tenderness. BACK: Nontender without deformity or crepitance. No flank tenderness. NEURO: AOx3. SKIN: No rash or erythema of visible areas NIH Stroke Scale 1a. LOC: Patient is alert and keenly responsive (0) 1b. LOC Questions: Patient answers both LOC questions accurately (0) 1c. LOC Commands: Patient performs both tasks correctly (0) 2. Best Gaze: Normal (0) 3. Visual: No visual loss (0) 4. Facial palsy: Normal symmetrical movements (0) 5. Motor arm: No drift (0) 6. Motor leg: No drift (0) 7. Limb ataxia: Absent (0) 8. Sensory: Normal (0) 9. Best language: No aphasia; normal (0) 10. Dysarthria: Normal (0) 11. Extinction and inattention: No abnormality (0) NIHSS: 0 Initial Vital Signs Initial Vital Signs: Vital Signs Temperature 97.6 F 08/13/21 17:39 Pulse Rate 99 H 08/13/21 17:39 Respiratory Rate 20 08/13/21 17:39 Blood Pressure 184/103 H 08/13/21 17:39 Pulse Oximetry 94 08/13/21 17:39 Course Orders Ordered: ED Orders 08/13/21 18:00 Urinalysis and Microscopic Stat 08/13/21 18:04 Complete Blood Count AUTO DIFF Stat Comprehensive Metabolic Panel Stat D Dimer Stat Magnesium Stat NT-proBNP (BNP-Adult 18+) Stat Troponin & CK Cardiac Panel Stat 08/13/21 18:15 XR chest 2V Stat EKG-12 Lead Stat 08/13/21 19:23 COVID19 -Nasal swab/Pre-Proc Stat 01/13/22 20:55 Troponin & CK Cardiac Panel Stat Discontinued Medications Sodium Chloride (Normal Saline 0.9%) 1,000 mls @ 125 mls/hr IV CONT ZANE Last Infusion: 08/13/21 22:19 Dose: 0 mls/hr Documented by: Admin: 08/13/21 18:20 Dose: 125 mls/hr Documented by: CAROLYN Ketorolac Tromethamine (Ketorolac 30 Mg/Ml Vial) 15 mg IV NOW ONE Stop: 08/13/21 20:06 Last Admin: 08/13/21 20:56 Dose: 15 mg Documented by: HAYDEE Reevaluation(s) Reevaluation #1: Patient has significant improvement in her headache after receiving Toradol. Reevaluation #2: On arrival blood pressure was still a bit elevated and patient was symptomatic, however soon after she checked in and for the duration her visit her blood pressure had normalized in the 120s to 140s and her chest pain did not return. Vital Signs Vital signs: Vital Signs - 8 hr 08/13/21 18:07 08/13/21 18:09 08/13/21 18:30 Pulse Rate 89 76 83 Respiratory Rate 14 18 Blood Pressure 144/74 H Pulse Oximetry 100 100 100 08/13/21 18:31 08/13/21 18:41 08/13/21 19:00 Pulse Rate 86 75 86 Respiratory Rate 23 15 15 Blood Pressure 156/121 H 140/72 Pulse Oximetry 100 100 99 08/13/21 19:01 08/13/21 19:35 08/13/21 19:36 Pulse Rate 85 76 76 Respiratory Rate 22 24 14 Blood Pressure 118/61 126/63 Pulse Oximetry 100 79 L 100 08/13/21 20:00 08/13/21 20:01 08/13/21 20:30 Pulse Rate 86 81 85 Respiratory Rate 22 19 16 Blood Pressure 149/83 H Pulse Oximetry 100 100 100 08/13/21 20:31 08/13/21 21:00 08/13/21 21:30 Pulse Rate 96 H 85 82 Respiratory Rate 37 H 17 15 Blood Pressure 124/63 129/73 Pulse Oximetry 100 98 97 08/13/21 21:31 08/13/21 22:00 08/13/21 22:01 Pulse Rate 75 82 82 Respiratory Rate 15 15 22 Blood Pressure 139/64 137/64 Pulse Oximetry 100 100 100 Medical Decision Making Lab Data Result diagrams: 08/13/21 18:04 08/13/21 18:04 Labs: Lab Results 08/13/21 08/13/21 08/13/21 Range/Units 18:00 18:04 18:04 WBC 12.3 H (4.5-11.0) X10^3/uL RBC 4.95 (4.0-5.2) X10^6/uL Hgb 15.1 (12.0-16.0) g/dL Hct 44.1 (36-46) % MCV 89.2 (80-100) fL MCH 30.5 (26-34) PG MCHC 34.2 (30-36) % RDW 13.3 (11.6-14.8) % Plt Count 344 (150-400) X10^3/uL Neut % (Auto) 66.6 (50-75) % Lymph % (Auto) 25.8 (25-40) % Tate % (Auto) 4.3 (3-14) % Eos % (Auto) 2.7 (2-4) % Baso % (Auto) 0.6 (0-2) % Neut # (Auto) 8200 H (0167-2854) /uL Lymph # (Auto) 3200 (3717-5710) /uL Tate # (Auto) 500 (0-900) /uL Eos # (Auto) 300 (0-450) /uL Baso # (Auto) 100 (0-100) /uL D-Dimer (<230) ng/mL Sodium 137 (137-145) mmol/L Potassium 3.9 (3.4-5.1) mmol/L Chloride 106 (98-107) mmol/L Carbon Dioxide 23 (22-32) mmol/L BUN 18 H (7-17) mg/dL Creatinine 0.74 (0.52-1.04) mg/dL Estimated GFR > 60.0 (>60) mL/min BUN/Creatinine Ratio 24.3 H (6-22) Glucose 98 (70-100) mg/dL Calcium 9.8 (8.4-10.2) mg/dL Magnesium 2.0 (1.6-2.3) mg/dL Total Bilirubin 0.4 (0.2-1.3) mg/dL AST 30 (14-36) IU/L ALT 26 (<35) IU/L Alkaline Phosphatase 78 (38-126) U/L Total Creatine Kinase 103 (30-135) U/L CK-MB (CK-2) 1.27 (<2.37) ng/mL CK-MB (CK-2) Rel Index 1.2 L (1.5-5.0) % Troponin I < 0.012 (0.01-0.034) ng/mL NT-Pro-B Natriuret Pep 17 (<125) pg/mL Total Protein 7.9 (6.3-8.2) g/dL Albumin 4.7 (3.5-5.0) g/dL Globulin 3.2 (1.7-4.1) g/dL Albumin/Globulin Ratio 1.5 (1.0-2.8) Urine Color Yellow Urine Appearance Clear Urine pH 5.5 (4.5-8.0) Ur Specific Nine[place] <=1.005 (1.000-1.035) Urine Protein Negative (Negative) Urine Glucose (UA) Negative (Negative) g/dL Urine Ketones Negative (NEGATIVE) Urine Occult Blood Trace-intact (Negative) Urine Nitrate Negative (Negative) Urine Bilirubin Negative (NEGATIVE) Urine Urobilinogen 0.2 (0.2) E.U./dL Ur Leukocyte Esterase Negative (NEGATIVE) Urine RBC 0-1/hpf (0-5/HPF) Urine WBC None seen (0-5/HPF) Urine Bacteria None seen (None) Ur Culture Indicated? Cult not indicated SARS-CoV-2 (PCR) (Negative) 08/13/21 08/13/21 08/13/21 Range/Units 18:04 19:23 20:55 WBC (4.5-11.0) X10^3/uL RBC (4.0-5.2) X10^6/uL Hgb (12.0-16.0) g/dL Hct (36-46) % MCV (80-100) fL MCH (26-34) PG MCHC (30-36) % RDW (11.6-14.8) % Plt Count (150-400) X10^3/uL Neut % (Auto) (50-75) % Lymph % (Auto) (25-40) % Tate % (Auto) (3-14) % Eos % (Auto) (2-4) % Baso % (Auto) (0-2) % Neut # (Auto) (3816-3564) /uL Lymph # (Auto) (9940-0767) /uL Tate # (Auto) (0-900) /uL Eos # (Auto) (0-450) /uL Baso # (Auto) (0-100) /uL D-Dimer 222 (<230) ng/mL Sodium (137-145) mmol/L Potassium (3.4-5.1) mmol/L Chloride (98-107) mmol/L Carbon Dioxide (22-32) mmol/L BUN (7-17) mg/dL Creatinine (0.52-1.04) mg/dL Estimated GFR (>60) mL/min BUN/Creatinine Ratio (6-22) Glucose (70-100) mg/dL Calcium (8.4-10.2) mg/dL Magnesium (1.6-2.3) mg/dL Total Bilirubin (0.2-1.3) mg/dL AST (14-36) IU/L ALT (<35) IU/L Alkaline Phosphatase (38-126) U/L Total Creatine Kinase 95 (30-135) U/L CK-MB (CK-2) TNP (<2.37) ng/mL CK-MB (CK-2) Rel Index TNP (1.5-5.0) % Troponin I < 0.012 (0.01-0.034) ng/mL NT-Pro-B Natriuret Pep (<125) pg/mL Total Protein (6.3-8.2) g/dL Albumin (3.5-5.0) g/dL Globulin (1.7-4.1) g/dL Albumin/Globulin Ratio (1.0-2.8) Urine Color Urine Appearance Urine pH (4.5-8.0) Ur Specific Nineveh (1.000-1.035) Urine Protein (Negative) Urine Glucose (UA) (Negative) g/dL Urine Ketones (NEGATIVE) Urine Occult Blood (Negative) Urine Nitrate (Negative) Urine Bilirubin (NEGATIVE) Urine Urobilinogen (0.2) E.U./dL Ur Leukocyte Esterase (NEGATIVE) Urine RBC (0-5/HPF) Urine WBC (0-5/HPF) Urine Bacteria (None) Ur Culture Indicated? SARS-CoV-2 (PCR) Negative (Negative) MDM Narrative Medical decision making narrative: Headache considerations include, but not limited to: Subarachnoid hemorrhage, but unlikely as patient denies sudden onset of pain, not worst of life, or neck pain Meningitis considered, but thought unlikely given lack of Brudzinski's, Kernig's sign, altered mental status or fever Giant cell arteritis considered, but thought unlikely given lack of unilateral findings, pain in jew, vision change HTN Emergency considered, but thought unlikely given lack of temporal relationship with HTN Other serious diagnoses considered unlikely given lack of red flag findings such as sudden onset, increasing frequency, immunocompromise, systemic signs (fever, chills, stiff neck, or rash), focal neurologic findings, trauma, blood thinners, etc. Multiple causes of chest pain considered including NE, PE, pneumothorax, pneumonia, aortic dissection, and pleurisy. Patient reports no radiation, no diaphoresis, no provocation with exertion, and no vomiting EKG nonischemic, troponin x2 unremarkable. Pulmonary embolism thought unlikely given lack of elevated D-dimer. Seems reasonable to consider that the chest pain may have been related to blood pressure as the discomfort was there when her blood pressure was up and resolved with normal blood pressure. Patient's symptoms improved over duration of stay with above-stated therapies. We discussed the potential need for antihypertensives, but agree that we will allow her to discuss this with her primary care provider as she now essentially has normal blood pressure and lack of symptoms. Findings and discharge diagnosis discussed with patient/family followed by verbalization of understanding Return precautions discussed with patient/family whom verbalize understanding. Discharge Plan Departure Patient Disposition: Home Clinical Impression: Headache, Hypertension, Atypical chest pain Instructions: DI for High Blood Pressure Activity Restrictions/Additional Instructions: *You have been diagnosed with [headache and atypical chest pain likely a consequence of elevated blood pressure earlier. As we discussed, there are no elements of her history, physical exam, labs, imaging or other that was suggest any diagnosis which would require admission or specific treatment. We evaluated for heart attack, blood clot, pneumonia, COVID among others and all brought back reassuring results. *What to do: *Please continue to take your regular medications as directed. [ x] New medication prescriptions sent to your pharmacy: [[facility] ] [ ] New medication written as a paper prescription [ ] No new medications given *Please follow up with your primary care provider in 2-3 days, call for an appointment. Let them know you were seen in the Emergency Department and that we ask that you be seen in follow up. We will electronically transmit a record of today's note if your PCP is in our system *Return to ER if you should have any new, worsening or concerning symptoms, such as [ fever > 101F, neck pain or stiffness, vomiting, confusion, seizure, focal weakness, vision change, speech deficit or other concerning symptoms ] Prescriptions: New ketorolac 10 mg tablet 10 mg PO Q6H PRN (Reason: pain) Qty: 14 0RF No Action Turmeric/Curcumin See Rx Instructions .ROUTE .COMPLEX 0RF Label Comments: 3 TABS PO QDAY Rx Instructions: 3 TABS PO QDAY omega-3 fatty acids [Fish Oil Concentrate] 1,000 mg capsule 1,000 mg PO DAILY 0RF lidocaine 5 % adhesive patch,medicated 1 patch TOP DAILY Qty: 30 0RF Rx Instructions: leave on most painful area for 12 hrs to 24 hours amitriptyline 50 mg tablet 50 mg PO BEDTIME Qty: 90 3RF albuterol sulfate 90 mcg/actuation HFA aerosol inhaler 2 puff INHALATION Q4-6H PRN (Reason: shortness of breath or wheezing) Qty: 18 3RF amitriptyline 25 mg tablet 25 mg PO BEDTIME Qty: 90 3RF Rx Instructions: Takes w/1 50mg tablet for total of 75mg at bedtime. hydrocodone-acetaminophen 5-325 mg tablet 1 - 2 tab PO DAILY PRN (Reason: pain) Qty: 10 0RF Hold Instructions: change quantity to #10 with next fill Rx Instructions: Must last 30 days cyclobenzaprine 10 mg tablet 10 mg PO TID PRN (Reason: Pain (Scale Score 1-3)) Qty: 30 11RF multivitamin See Rx Instructions .Route .COMPLEX 0RF Label Comments: 3 TABS PO QDAY Rx Instructions: 3 TABS PO QDAY Vitamin D3 1 cap PO DAILY 0RF naproxen sodium [Aleve] 220 mg capsule 220 mg PO BID PRN (Reason: Mouth Pain) 0RF Referrals: Aubrey Summers MD [Primary Care Provider] -
--- NOTE | 2021-08-13 18:15 | DI.RAD.S_ITS ---
PROCEDURE: XR CHEST 2V INDICATIONS: SOB TECHNIQUE: 2 views of the chest were acquired. COMPARISON: [facility], , CHEST 2 VIEW, 01/08/2016, 8:44. FINDINGS: Surgical changes and devices: None. Lungs and pleura: Lungs are clear. No pleural effusions or pneumothorax. Mediastinum: Mediastinal contours are normal. Heart size is normal. Bones and chest wall: No suspicious bony abnormalities. Soft tissues appear unremarkable. IMPRESSION: No acute cardiopulmonary pathology. Dictated by: Lars Laboy M.D. on 08/13/2021 at 18:48 Approved by: Lars Laboy M.D. on 08/13/2021 at 18:52
[2021-08-13] MEDS: SODIUM CHLORIDE 0.9% 1,000 ML 125 ML IV (18:20)
[2021-08-13 18:24] LABS: Appearance Urine UA CLEAR; Bilirubin Urine UA NEGATIVE (NEGATIVE); Color Urine UA YELLOW; Glucose Urine UA NEGATIVE (Negative); Ketones Urine UA NEGATIVE (NEGATIVE); Leukocyte Esterase Urine UA NEGATIVE (NEGATIVE); Nitrite Urine UA NEGATIVE (Negative); Occult Blood Urine UA TRACE-INTACT (Negative); Protein Urine UA NEGATIVE (Negative); Specific Gravity Urine UA <=1.005 (1.000-1.035); Urobilinogen Urine UA 0.2 E.U./dL (0.2)
[2021-08-13 18:24] LABS: Add Manual Diff / Slide Review NO; Basophils Absolute Auto 100 /uL (0-100); Basophils Percent Auto 0.6 % (0-2); Eosinophils Absolute Auto 300 /uL (0-450); Eosinophils Percent Auto 2.7 % (2-4); Hematocrit 44.1 % (36-46); Hemoglobin 15.1 g/dL (12.0-16.0); Lymphocytes Absolute Auto 3200 /uL (1100-4500); Lymphocytes Percent Auto 25.8 % (25-40); Mean Corpuscular HGB Conc 34.2 % (30-36); Mean Corpuscular Hemoglobin 30.5 PG (26-34); Mean Corpuscular Volume 89.2 fL (80-100); Monocytes Absolute Auto 500 /uL (0-900); Monocytes Percent Auto 4.3 % (3-14); Neutrophils Absolute Auto 8200 /uL (1500-7000); Neutrophils Percent Auto 66.6 % (50-75); Platelet Count 344 X10^3/uL (150-400); Red Blood Cell Count 4.95 X10^6/uL (4.0-5.2); Red Cell Distribution Width 13.3 % (11.6-14.8); White Blood Cell Count 12.3 X10^3/uL (4.5-11.0)
[2021-08-13 18:32] LABS: Alanine Aminotransferase 26 IU/L (<35); Albumin 4.7 g/dL (3.5-5.0); Albumin Globulin Ratio 1.5 (1.0-2.8); Alkaline Phosphatase 78 U/L (38-126); Aspartate Aminotransferase 30 IU/L (14-36); BUN Creatinine Ratio 24.3 (6-22); Bilirubin Total 0.4 mg/dL (0.2-1.3); Blood Urea Nitrogen 18 mg/dL (7-17); Calcium 9.8 mg/dL (8.4-10.2); Carbon Dioxide 23 mmol/L (22-32); Chloride 106 mmol/L (98-107); Creatine Kinase 103 U/L (30-135); Estimated Glomerular Filt Rate > 60.0 mL/min (>60); Globulin 3.2 g/dL (1.7-4.1); Glucose 98 mg/dL (70-100); HEMOLYSIS < 15 (0-50); Potassium 3.9 mmol/L (3.4-5.1); Sodium 137 mmol/L (137-145); Total Protein 7.9 g/dL (6.3-8.2)
[2021-08-13 18:38] LABS: pH Urine UA 5.5 (4.5-8.0)
[2021-08-13 18:39] LABS: Bacteria Urine None Seen; Culture Indicated Urine Cult Not Indicated; RBC Urine 0-1/HPF (0-5/HPF); WBC Urine None Seen (0-5/HPF)
[2021-08-13 18:44] LABS: NT-proBNP (BNP-Adult 18+) 17 pg/mL (<125); Troponin I < 0.012 ng/mL (0.01-0.034)
[2021-08-13 18:47] LABS: CKMB % Relative Index 1.2 % (1.5-5.0); Creatine Kinase MB 1.27 ng/mL (<2.37)
[2021-08-13 19:42] LABS: COVID19 -Nasal RAPID Negative (Negative)
[2021-08-13 20:15] LABS: D Dimer 222 ng/mL (<230)
[2021-08-13] MEDS: KETOROLAC 30 MG/ML VIAL 15 MG IV (20:56)
[2021-08-13 21:11] LABS: Creatine Kinase 95 U/L (30-135)
[2021-08-13 21:24] LABS: Troponin I < 0.012 ng/mL (0.01-0.034)
== END 2021-08-13 22:21 | disposition home or self-care (01) ==
PROVIDERS: Emergency Provider Emergency Medicine; Family Provider Student in an Organized Health Care Education/Training Program; PCP Student in an Organized Health Care Education/Training Program
DX: R51.9 Headache, unspecified (principal); I10 Essential (primary) hypertension; R07.89 Other chest pain; Z87.891 Personal history of nicotine dependence; Z20.822 Contact with and (suspected) exposure to COVID-19
CPT/HCPCS: 36415; 71046; 80053; 81001; 82550; 82553; 83735; 83880; 84484; 85025; 85379; 87635; 93005; 93010; 96361; 96374; 99284; C9803; J1885

== ENCOUNTER → 2021-09-11 08:33 | Outpatient (CLI) | payer OTHER, MEDICAID, SELFPAY ==
--- NOTE | 2021-09-11 08:20 | DI.ECHO.S_ITS ---
[facility] +---------+ : : [address] : : : : [id number] : : : : Phone: [phone] Echocardiogram Report + + :Name: COLEMAN MENA Study Date: 09/11/2021 Height: 67 in : :[facility] ReadingLocation: Weight: 267 lb : : Gender: Female BSA: 2.3 m2 : :: 1980 Age: 41 yrs BP: 130/90 mmHg: :Reason For Study: HTN, Chest pain : :Ordering Physician: Dr. Gerard : :Fabrice Performed By: Andrew Miranda : :Referring: Dr. Moustapha Avina : + + Interpretation Summary 1) Normal left ventricular thickness, size, wall motion, and systolic function (EF 55-60%). 2) Normal right ventricular size and function. 3) No significant valvular abnormalities. 4) No prior Echo available for comparison. Procedure: A two-dimensional transthoracic echocardiogram with color flow and Doppler was performed. The study quality was technically difficult. The apical views were difficult to obtain and are suboptimal in quality. There is no prior echocardiogram noted for this patient. The patient was in normal sinus rhythm during the exam. Left Ventricle: The left ventricle is normal in size and wall thickness. The ejection fraction is estimated to be 55-60%. Left ventricular wall motion is normal. Right Ventricle: The right ventricle is normal in size and function. Atria: Both atria are normal in size. There is no Doppler evidence for an interatrial shunt. Mitral Valve: The mitral valve is normal in structure and function. Aortic Valve: The aortic valve is trileaflet. The aortic valve opens well. There is no aortic valve stenosis. There is trace aortic regurgitation. Tricuspid Valve: The tricuspid valve is normal. There is a trace or physiologic amount of tricuspid regurgitation. Pulmonary artery pressures cannot be estimated because of the lack of a measurable TR jet velocity but the IVC suggests a CVP of around 8 mmHg. Pulmonic Valve: The pulmonic valve is normal in structure and function. Great Vessels: The aortic root is normal size. The ascending aorta is normal in size. The aortic arch is normal in size. The IVC is of normal diameter and collapses less than 50% with a sniff. This suggests a right atrial pressure of 8 mm Hg. Pericardium/ Pleura There is no pericardial effusion. There is an anterior echo-free space consistent with a fat pad. There is no pleural effusion. MMode/2D Measurements & Calculations LVIDd: 4.6 cm LVOT diam: 2.1 cm LVIDs: 2.8 cm Ao root diam: 3.1 cm FS: 39.2 % asc Aorta Diam: 3.4 cm IVSd: 0.91 cm Ao Arch Diam (Prox Trans): 2.7 cm LVPWd: 1.1 cm LV menjivar. diameter/BSA (cm/m^2): 2.0 LV sys. diameter/BSA (cm/m^2): 1.2 LA A2 area: 14.7 cm2 RA long axis: 4.8 cm LA A4 area: 15.0 cm2 RA area: 14.6 cm2 LA length (vol): 5.0 cm RA vol: 37.5 ml LA vol: 37.1 ml RA : 16.4 ml/m2 LA vol index: 16.2 ml/m2 TAPSE: 2.3 cm Doppler Measurements & Calculations Ao V2 max: 116.1 cm/sec LVOT Max Nasir: 88.2 cm/sec Ao V2 mean: 79.4 cm/sec LV V1 max P.1 mmHg Ao max P.4 mmHg LV V1 VTI: 20.6 cm Ao mean P.8 mmHg VA(I,D): 3.3 cm2 Ao V2 VTI: 22.7 cm VA(V,D): 2.7 cm2 sev ratio: 0.91 VA indexed to BSA (cm^2/m^2): 1.4 MV E max nasir: 67.2 cm/sec SV(LVOT): 73.9 ml MV A max nasir: 46.9 cm/sec MV E/A: 1.4 Med Peak E' Nasir: 7.1 cm/sec E/E' med: 9.4 Lat Peak E' Nasir: 10.0 cm/sec E/E' lat: 6.7 E/e' average: 8.1 MV dec time: 0.18 sec Reading Physician:11:17 AM
== END ==
PROVIDERS: Family Provider Student in an Organized Health Care Education/Training Program; PCP Student in an Organized Health Care Education/Training Program; Referring Provider Internal Medicine; Visit Provider Internal Medicine
DX: R07.89 Other chest pain (principal); I10 Essential (primary) hypertension
CPT/HCPCS: 93306

== ENCOUNTER → 2021-09-19 10:23 | Outpatient (CLI) | payer OTHER, MEDICAID, SELFPAY ==
[2021-09-19 10:58] LABS: Hemoglobin A1C% w Est Avg Glu 5.5 % (4.0-6.0)
[2021-09-19 11:00] LABS: BUN Creatinine Ratio 19.2 (6-22); Blood Urea Nitrogen 14 mg/dL (7-17); Calcium 9.1 mg/dL (8.4-10.2); Carbon Dioxide 24 mmol/L (22-32); Chloride 107 mmol/L (98-107); Estimated Glomerular Filt Rate > 60.0 mL/min (>60); Glucose 99 mg/dL (70-100); HEMOLYSIS < 15 (0-50); Potassium 4.1 mmol/L (3.4-5.1); Sodium 138 mmol/L (137-145)
[2021-09-19 12:59] LABS: Creatinine Urine Random 23.6 mg/dL; Sodium Urine Random 23 mmol/L (30-90)
--- NOTE | 2021-09-19 14:15 | DI.MG.S_ITS ---
BILATERAL DIGITAL SCREENING MAMMOGRAM 3D/2D WITH CAD: 09/19/2021 CLINICAL: Routine screening. Comparison is made to exams dated: 01/17/2014 mammogram and 11/24/2017 mammogram - [facility]. The tissue of both breasts is heterogeneously dense. This may lower the sensitivity of mammography. Current study was also evaluated with a Computer Aided Detection (CAD) system. No significant masses, calcifications, or other findings are seen in either breast. There has been no significant interval change. IMPRESSION: NEGATIVE There is no mammographic evidence of malignancy. A 1 year screening mammogram is recommended. This exam was interpreted at Station ID: [id number]. NOTE: For mammograms, a report in lay terms will be sent to the patient. Approximately 15% of breast malignancies will not be visualized mammographically. In the management of a palpable breast mass, a negative mammogram must not discourage biopsy of a clinically suspicious lesion. Electronically Signed By: John Ricketts M.D., jr/kim:09/21/2021 09:39:47 letter sent: Normal Exam ACR BI-RADS Category 1: Negative [id number]
== END ==
PROVIDERS: Family Provider Student in an Organized Health Care Education/Training Program; PCP Student in an Organized Health Care Education/Training Program; Referring Provider Student in an Organized Health Care Education/Training Program; Visit Provider Student in an Organized Health Care Education/Training Program
DX: Z12.31 Encounter for screening mammogram for malignant neoplasm of breast (principal); R35.89 Other polyuria
CPT/HCPCS: 36415; 77063; 77067; 80048; 82570; 83036; 84300

== ENCOUNTER → 2022-02-13 11:18 | Outpatient (CLI) | payer OTHER, MEDICAID, SELFPAY ==
--- NOTE | 2022-02-13 11:19 | DI.MRI.S_ITS ---
PROCEDURE: MR ABDOMEN WO/W CON INDICATIONS: Chronic L-sided abdominal pain. H/o endometriosis TECHNIQUE: Coronal HASTE, axial 2D FLASH in- and [id number]; axial breath-hold T2 FSE. Dynamic axial VIBE during the administration of contrast; post-contrast coronal VIBE or 2D FLASH with fat saturation from the hepatic dome to the iliac crests. Optional diffusion weighted imaging and ADC may be performed. COMPARISON: None. FINDINGS: Image quality: Excellent. Lung bases: No basal pleural effusions. Heart size is normal. Solid organs: Liver is normal in size and enhancement. Gallbladder is normal. Biliary system is non dilated. Pancreas is normal in morphology. Spleen is normal in size and enhancement. No adrenal nodules. Both kidneys demonstrate normal size and enhancement, without hydronephrosis. Nodes and vessels: No retroperitoneal or mesenteric adenopathy by size criteria. Aorta and inferior vena cava are normal in size. Bowel and peritoneum: Unenhanced bowel loops are normal in caliber. No free fluid. Bones and soft tissues: No ventral hernias. Bone marrow is normal in overall signal. IMPRESSION: 1. No explanation for left-sided abdominal pain. Dictated by: Deloris Smith M.D. on 02/15/2022 at 12:14 Approved by: Deloris Smith M.D. on 02/15/2022 at 12:19
== END ==
PROVIDERS: Family Provider Student in an Organized Health Care Education/Training Program; PCP Student in an Organized Health Care Education/Training Program; Referring Provider Student in an Organized Health Care Education/Training Program; Visit Provider Student in an Organized Health Care Education/Training Program
DX: R10.10 Upper abdominal pain, unspecified (principal); G89.29 Other chronic pain; Z87.42 Personal history of other diseases of the female genital tract; R10.30 Lower abdominal pain, unspecified
CPT/HCPCS: 74183; A9579

== ENCOUNTER → 2022-02-17 16:11 | Outpatient (CLI) | payer OTHER, MEDICAID, SELFPAY ==
--- NOTE | 2022-02-17 16:17 | DI.US.S_ITS ---
PROCEDURE: US PELVIC COMPLETE INDICATIONS: LLQ abdominal pain TECHNIQUE: Real-time scanning was performed of the pelvic organs, with image documentation. Additional endovaginal scanning was necessary due to incomplete visualization of the adnexal and endometrial structures by transabdominal scanning. COMPARISON: [facility], MR, MR ABDOMEN WO/W CON, 02/13/2022, 11:43. [facility], US, PELVIC COMPLETE, 09/27/2017, 10:28. FINDINGS: Uterus: Removed. Ovaries: The right ovary has been removed. The left ovary measures 3.4 x 2.1 x 1.9 cm. There is a complex cyst seen within the left ovary that measures 19 x 9 x 11 mm. Normal appearing arterial waveforms are confirmed to the left ovary. Other: No pathologic free abdominal or pelvic fluid. IMPRESSION: 19 mm complex cyst seen involving the left ovary, which most likely represents a hemorrhagic cyst. If it would be clinically appropriate, a followup pelvic ultrasound could be considered in 6 weeks to assure resolution/ improvement. Status post hysterectomy and right oophorectomy. We strive to produce accurate, complete, and clear reports of imaging services. To assist us in improving patient care, this report was composed using standard report templates and voice recognition software. Therefore, it may contain abnormal punctuation, insertions and/or omissions. Occasional wrong-word or sound-alike substitutions may occur. Though we review the report and make efforts to correct it, we do recommend that the report be read carefully in proper context to recognize any text inaccuracies. Dictated by: Scott Vazquez M.D. on 02/17/2022 at 16:04 Approved by: Scott Vazquez M.D. on 02/17/2022 at 16:06
== END ==
PROVIDERS: Family Provider Student in an Organized Health Care Education/Training Program; PCP Student in an Organized Health Care Education/Training Program; Referring Provider Student in an Organized Health Care Education/Training Program; Visit Provider Student in an Organized Health Care Education/Training Program
DX: N83.292 Other ovarian cyst, left side (principal); R10.32 Left lower quadrant pain; Z90.710 Acquired absence of both cervix and uterus; Z90.721 Acquired absence of ovaries, unilateral
CPT/HCPCS: 76830; 76856

== ENCOUNTER → 2022-03-20 11:43 | Outpatient (CLI) | payer OTHER, MEDICAID, SELFPAY ==
--- NOTE | 2022-03-20 11:44 | DI.CT.S_ITS ---
PROCEDURE: CT IVP A/P W/WO INDICATIONS: Hematuria TECHNIQUE: Optional 5 mm thick noncontrast images acquired from the diaphragm to the symphysis pubis. After the administration of intravenous contrast, 5 mm thick images acquired from the diaphragm to the symphysis pubis after a 10-minute delay. 2 mm thick coronal and sagittal reformats were then performed of the kidneys and ureters. For radiation dose reduction, the following was used: automated exposure control, adjustment of mA and/or kV according to patient size. COMPARISON: None. FINDINGS: Image quality: Excellent. Lung bases: Lung bases are clear. Heart size is normal. Urinary system: Both kidneys are normal in size, without hydronephrosis or nephrolithiasis on pre-contrast images. No perinephric fat stranding. There is normal bilateral renal enhancement. Renal calyces appear normal in morphology when filled with contrast. Opacified portions of both ureters demonstrate normal caliber. Bladder wall thickness is normal. No calcified bladder stones. Other solid organs: Liver is normal in size and enhancement. Gallbladder unremarkable . Biliary system is non dilated. Pancreas enhances normally. Spleen is normal in size and enhancement. No adrenal nodules. Peritoneum and bowel: Bowel loops demonstrate normal wall thickness and caliber. No free fluid or air. Appendectomy. Nodes and vessels: No retroperitoneal or mesenteric adenopathy by size criteria. Aorta and inferior vena cava are normal in size. Abdominal wall: No ventral hernias. Pelvis: No pathologic free pelvic fluid. No inguinal hernias or adenopathy. Small 2 cm left ovarian cyst. Hysterectomy. Bones: No suspicious bony lesions. No vertebral body compression fractures. Multilevel degenerative disc disease and arthropathy in the lower lumbar spine IMPRESSION: Unremarkable CT of the kidneys without renal calculi, hydronephrosis or mass lesion. Approved by: Chencho Hallman M.D. on 03/20/2022 at 14:30
== END ==
PROVIDERS: Family Provider Student in an Organized Health Care Education/Training Program; PCP Student in an Organized Health Care Education/Training Program; Referring Provider Obstetrics & Gynecology; Visit Provider Obstetrics & Gynecology
DX: R31.29 Other microscopic hematuria (principal); M51.36 Other intervertebral disc degeneration, lumbar region; M47.816 Spondylosis without myelopathy or radiculopathy, lumbar region; N83.202 Unspecified ovarian cyst, left side; Z90.710 Acquired absence of both cervix and uterus
CPT/HCPCS: 74178; Q9967

== ENCOUNTER → 2022-04-01 14:45 | Outpatient (CLI) | payer OTHER, MEDICAID, SELFPAY | PROVIDERS: Family Provider Student in an Organized Health Care Education/Training Program; PCP Student in an Organized Health Care Education/Training Program; Referring Provider Obstetrics & Gynecology; Visit Provider Obstetrics & Gynecology | DX: Z13.820 Encounter for screening for osteoporosis (principal); Z79.52 Long term (current) use of systemic steroids | CPT/HCPCS: 77080 ==

== ENCOUNTER → 2022-04-06 08:26 | Outpatient (CLI) | payer OTHER, MEDICAID, SELFPAY | PROVIDERS: Family Provider Student in an Organized Health Care Education/Training Program; PCP Student in an Organized Health Care Education/Training Program; Visit Provider Urology | DX: R31.29 Other microscopic hematuria (principal); R35.0 Frequency of micturition; R35.89 Other polyuria; Z87.891 Personal history of nicotine dependence; Z87.442 Personal history of urinary calculi; R39.15 Urgency of urination | CPT/HCPCS: 81002; 87086; 87186; 99214 ==

== ENCOUNTER → 2022-11-06 10:22 | Outpatient (CLI) | payer OTHER, MEDICAID, SELFPAY ==
--- NOTE | 2022-11-06 10:23 | DI.MG.S_ITS ---
BILATERAL DIGITAL SCREENING MAMMOGRAM 3D/2D WITH CAD: 11/06/2022 CLINICAL: Routine screening. Comparison is made to exams dated: 09/19/2021 mammogram - [facility], 11/24/2017 mammogram, and 01/17/2014 mammogram - [facility]. Both breasts are almost entirely fatty (category a/<25% glandular tissue). Current study was also evaluated with a Computer Aided Detection (CAD) system. No significant masses, calcifications, or other findings are seen in either breast. There has been no significant interval change. IMPRESSION: NEGATIVE There is no mammographic evidence of malignancy. A 1 year screening mammogram is recommended. Based on the Tyrer Cuzick model (a risk assessment model) the patient's lifetime risk is 4.1% and her 10 year risk is 0.5%. According to the ACR, ACS, and NCCN guidelines, an annual breast MRI exam along with mammogram is recommended if the patient's lifetime risk is 20% or greater. This exam was interpreted at Station ID: [id number]. NOTE: For mammograms, a report in lay terms will be sent to the patient. Approximately 15% of breast malignancies will not be visualized mammographically. In the management of a palpable breast mass, a negative mammogram must not discourage biopsy of a clinically suspicious lesion. Electronically Signed By: Deloris colón/kim:11/08/2022 08:34:06 letter sent: Normal Exam ACR BI-RADS Category 1: Negative 3341F
== END ==
PROVIDERS: Family Provider Student in an Organized Health Care Education/Training Program; PCP Student in an Organized Health Care Education/Training Program; Referring Provider Student in an Organized Health Care Education/Training Program; Visit Provider Student in an Organized Health Care Education/Training Program
DX: Z12.31 Encounter for screening mammogram for malignant neoplasm of breast (principal)
CPT/HCPCS: 77063; 77067

== ENCOUNTER → 2023-02-05 10:08 | Outpatient (CLI) | payer OTHER, MEDICAID, SELFPAY ==
[2023-02-05 12:20] LABS: Add Manual Diff / Slide Review NO; Basophils Absolute Auto 100 /uL (0-100); Basophils Percent Auto 1.1 % (0-2); Eosinophils Absolute Auto 200 /uL (0-450); Eosinophils Percent Auto 3.4 % (2-4); Hematocrit 40.6 % (36-46); Hemoglobin 14.1 g/dL (12.0-16.0); Lymphocytes Absolute Auto 1800 /uL (1100-4500); Lymphocytes Percent Auto 34.5 % (25-40); Mean Corpuscular HGB Conc 34.8 % (30-36); Mean Corpuscular Hemoglobin 30.9 PG (26-34); Mean Corpuscular Volume 88.8 fL (80-100); Monocytes Absolute Auto 300 /uL (0-900); Monocytes Percent Auto 6.4 % (3-14); Neutrophils Absolute Auto 2800 /uL (1500-7000); Neutrophils Percent Auto 54.6 % (50-75); Platelet Count 247 X10^3/uL (150-400); Red Blood Cell Count 4.57 X10^6/uL (4.0-5.2); Red Cell Distribution Width 13.3 % (11.6-14.8); White Blood Cell Count 5.2 X10^3/uL (4.5-11.0)
[2023-02-05 12:39] LABS: Alanine Aminotransferase 34 IU/L (<35); Albumin 4.2 g/dL (3.5-5.0); Albumin Globulin Ratio 1.4 (1.0-2.8); Alkaline Phosphatase 67 U/L (38-126); Aspartate Aminotransferase 33 IU/L (14-36); BUN Creatinine Ratio 25.8 (6-22); Bilirubin Total 0.8 mg/dL (0.2-1.3); Blood Urea Nitrogen 16 mg/dL (7-17); Calcium 8.8 mg/dL (8.4-10.2); Carbon Dioxide 24 mmol/L (22-32); Chloride 105 mmol/L (98-107); Cholesterol 200 mg/dL (140-199); Estimated Glomerular Filt Rate > 60 mL/min (>60); Globulin 3.1 g/dL (1.7-4.1); Glucose 90 mg/dL (70-100); HDL Cholesterol 52 mg/dL (40-60); LDL Cholesterol Calculated 121 mg/dL (<100); Sodium 138 mmol/L (137-145); Total Protein 7.3 g/dL (6.3-8.2); Triglycerides 135 mg/dL (35-150)
[2023-02-05 13:05] LABS: Appearance Urine UA CLEAR; Bilirubin Urine UA NEGATIVE (NEGATIVE); Color Urine UA YELLOW; Glucose Urine UA NEGATIVE (Negative); Ketones Urine UA NEGATIVE (NEGATIVE); Leukocyte Esterase Urine UA NEGATIVE (NEGATIVE); Nitrite Urine UA NEGATIVE (Negative); Occult Blood Urine UA 1+ (Negative); Protein Urine UA NEGATIVE (Negative); Urobilinogen Urine UA 0.2 E.U./dL (0.2)
[2023-02-05 13:10] LABS: HEMOLYSIS 98 (0-50); Potassium 4.6 mmol/L (3.4-5.1)
[2023-02-05 13:13] LABS: Bacteria Urine Occasional (0-1); Culture Indicated Urine Cult Not Indicated; RBC Urine 5-10/HPF (0-5/HPF); Squamous Epithelial Cell Urine 1-5 /HPF (0-5/HPF); WBC Urine None Seen (0-5/HPF)
== END ==
PROVIDERS: Family Provider Student in an Organized Health Care Education/Training Program; PCP Pediatrics; Referring Provider Pediatrics; Visit Provider Pediatrics
DX: I10 Essential (primary) hypertension (principal); F41.1 Generalized anxiety disorder; E66.01 Morbid (severe) obesity due to excess calories; M79.7 Fibromyalgia
CPT/HCPCS: 36415; 80053; 80061; 81001; 84443; 85025

== ENCOUNTER → 2023-03-25 10:26 | Outpatient (CLI) | payer OTHER, MEDICAID, SELFPAY ==
--- NOTE | 2023-03-25 10:27 | DI.RAD.S_ITS ---
PROCEDURE: XR KNEE LT 1TO2V INDICATIONS: left knee pain s/p fall, known ligamentous inj TECHNIQUE: 2 views of the knee were acquired. COMPARISON: [facility], CR, XR KNEE LT 3V, 10/03/2019, 16:29. [facility], CR, XR KNEE LT 3V, 02/13/2019, 9:25. FINDINGS: Bones: No fractures or dislocations. No suspicious bony lesions. Mild tricompartmental marginal spurring. Soft tissues: No joint effusion. No suspicious soft tissue calcifications. IMPRESSION: No acute osseous abnormality. If pain persists with conservative management, consider repeat x-ray in 10-14 days or cross-sectional imaging. Dictated by: Mehdi Hernandez M.D. on 03/25/2023 at 12:06 Approved by: Mehdi Hernandez M.D. on 03/25/2023 at 12:08
== END ==
PROVIDERS: Family Provider Student in an Organized Health Care Education/Training Program; PCP Student in an Organized Health Care Education/Training Program; Referring Provider Pediatrics; Visit Provider Pediatrics
DX: M25.562 Pain in left knee (principal)
CPT/HCPCS: 73560

== ENCOUNTER → 2023-09-02 11:24 | Outpatient (CLI) | payer OTHER, MEDICAID, SELFPAY ==
[2023-09-02 12:25] LABS: Influenza A - CEPHEID Flu A POSITIVE (NEGATIVE); Influenza B - CEPHEID Flu B NEGATIVE (NEGATIVE); Respiratory Syncytial Virus Negative (Negative)
[2023-09-02 12:41] LABS: COVID-19 CEPHEID 4-PLEX PCR Negative (Negative)
== END ==
PROVIDERS: Family Provider Student in an Organized Health Care Education/Training Program; PCP Student in an Organized Health Care Education/Training Program; Visit Provider Student in an Organized Health Care Education/Training Program
DX: R05.9 Cough, unspecified (principal); R09.89 Other specified symptoms and signs involving the circulatory and respiratory systems
CPT/HCPCS: 0241U

== ENCOUNTER → 2023-11-08 14:28 | Outpatient (CLI) | payer OTHER, MEDICAID, SELFPAY ==
[2023-11-08 15:34] LABS: Influenza A - CEPHEID Flu A NEGATIVE (NEGATIVE); Influenza B - CEPHEID Flu B NEGATIVE (NEGATIVE); Respiratory Syncytial Virus Negative (Negative)
[2023-11-08 15:43] LABS: COVID-19 CEPHEID 4-PLEX PCR Negative (Negative)
== END ==
PROVIDERS: Family Provider Student in an Organized Health Care Education/Training Program; PCP Student in an Organized Health Care Education/Training Program; Visit Provider Nurse Practitioner Family
DX: R05.9 Cough, unspecified (principal)
CPT/HCPCS: 87635; 87400 ×2; 87420; 0241U

== ENCOUNTER → 2024-01-06 07:52 | Outpatient (CLI) | payer OTHER, MEDICAID, SELFPAY ==
--- NOTE | 2024-01-06 07:53 | DI.MG.S_ITS ---
BILATERAL DIGITAL SCREENING MAMMOGRAM 3D/2D WITH CAD: 01/06/2024 CLINICAL: Routine screening. Family history of breast cancer. Comparison is made to exams dated: 11/06/2022 mammogram, 09/19/2021 mammogram - [facility], and 11/24/2017 mammogram - [facility]. Both breasts are almost entirely fatty (category a/<25% glandular tissue). Current study was also evaluated with a Computer Aided Detection (CAD) system. No significant masses, calcifications, or other findings are seen in either breast. There has been no significant interval change. IMPRESSION: NEGATIVE There is no mammographic evidence of malignancy. A 1 year screening mammogram is recommended. Based on the Tyrer Cuzick model (a risk assessment model) the patient's lifetime risk is 4.1% and her 10 year risk is 0.6%. According to the ACR, ACS, and NCCN guidelines, an annual breast MRI exam along with mammogram is recommended if the patient's lifetime risk is 20% or greater. This exam was interpreted at Station ID: [id number]. NOTE: For mammograms, a report in lay terms will be sent to the patient. Approximately 15% of breast malignancies will not be visualized mammographically. In the management of a palpable breast mass, a negative mammogram must not discourage biopsy of a clinically suspicious lesion. Electronically Signed By: Anali Lala M.D., Ph.D. catalina/kim:01/06/2024 09:35:09 letter sent: Normal Exam ACR BI-RADS Category 1: Negative 3341F
== END ==
LOC: MAMMO 07:53
PROVIDERS: Family Provider Student in an Organized Health Care Education/Training Program; PCP Student in an Organized Health Care Education/Training Program; Referring Provider Student in an Organized Health Care Education/Training Program; Visit Provider Student in an Organized Health Care Education/Training Program
DX: Z12.31 Encounter for screening mammogram for malignant neoplasm of breast (principal); Z80.3 Family history of malignant neoplasm of breast; R92.313 Mammographic fatty tissue density, bilateral breasts
CPT/HCPCS: 77063; 77067

== ENCOUNTER → 2024-03-24 08:48 | Outpatient (CLI) | payer OTHER, MEDICAID, SELFPAY ==
[2024-03-24 09:40] LABS: Add Manual Diff / Slide Review NO; Basophils Absolute Auto 100 /uL (0-100); Eosinophils Absolute Auto 200 /uL (0-450); Eosinophils Percent Auto 3.6 % (2-4); Hematocrit 41.5 % (36-46); Hemoglobin 14.1 g/dL (12.0-16.0); Lymphocytes Absolute Auto 2000 /uL (1100-4500); Lymphocytes Percent Auto 29.5 % (25-40); Mean Corpuscular HGB Conc 33.9 % (30-36); Mean Corpuscular Hemoglobin 30.2 PG (26-34); Mean Corpuscular Volume 89.2 fL (80-100); Monocytes Absolute Auto 400 /uL (0-900); Monocytes Percent Auto 5.2 % (3-14); Neutrophils Absolute Auto 4200 /uL (1500-7000); Neutrophils Percent Auto 60.7 % (50-75); Platelet Count 294 X10^3/uL (150-400); Red Blood Cell Count 4.65 X10^6/uL (4.0-5.2); Red Cell Distribution Width 13.9 % (11.6-14.8); White Blood Cell Count 6.9 X10^3/uL (4.5-11.0)
[2024-03-24 10:08] LABS: Hemoglobin A1C% w Est Avg Glu 5.5 % (4.0-6.0)
[2024-03-24 10:10] LABS: Alanine Aminotransferase 24 IU/L (<35); Albumin 3.9 g/dL (3.5-5.0); Albumin Globulin Ratio 1.4 (1.0-2.8); Alkaline Phosphatase 72 U/L (38-126); Aspartate Aminotransferase 21 IU/L (14-36); BUN Creatinine Ratio 21.3 (6-22); Bilirubin Total 0.5 mg/dL (0.2-1.3); Blood Urea Nitrogen 19 mg/dL (7-17); Carbon Dioxide 27 mmol/L (22-32); Chloride 103 mmol/L (98-107); Cholesterol 210 mg/dL (140-199); Estimated Glomerular Filt Rate > 60 mL/min (>60); Globulin 2.8 g/dL (1.7-4.1); Glucose 90 mg/dL (70-100); HDL Cholesterol 63 mg/dL (40-60); HEMOLYSIS < 15 (0-50); LDL Cholesterol Calculated 123 mg/dL (<100); Potassium 4.5 mmol/L (3.4-5.1); Sodium 137 mmol/L (137-145); Total Protein 6.7 g/dL (6.3-8.2); Triglycerides 122 mg/dL (35-150)
[2024-03-24 10:40] LABS: TSH w/ Reflex to FT4 1.65 uIU/mL (0.47-4.68)
== END ==
PROVIDERS: Family Provider Student in an Organized Health Care Education/Training Program; PCP Student in an Organized Health Care Education/Training Program; Referring Provider Student in an Organized Health Care Education/Training Program; Visit Provider Student in an Organized Health Care Education/Training Program
DX: R53.83 Other fatigue (principal); I10 Essential (primary) hypertension
CPT/HCPCS: 36415; 80053; 80061; 83036; 84443; 85025

== ENCOUNTER → 2024-03-31 07:23 | Outpatient (CLI) | payer OTHER, MEDICAID, SELFPAY ==
--- NOTE | 2024-03-31 07:24 | DI.MRI.S_ITS ---
PROCEDURE: MR ANKLE LT WO/W CON INDICATIONS: left achilles swelling, mass TECHNIQUE: Noncontrast sagittal T1 spin echo and T2 fast spin echo with fat saturation, axial proton density fast spin echo and T2 fast spin echo with fat saturation, axial T1 spin echo with fat saturation, coronal T1 spin echo and T2 fast spin echo with fat saturation through the ankle/hindfoot. Post-contrast axial, coronal, and sagittal T1 spin echo with fat saturation through the ankle/hindfoot. COMPARISON: None. FINDINGS: Image quality: Excellent Tendons: Mild tenosynovitis of the posterior tibialis. The flexor digitorum longus and the flexor hallucis longus are unremarkable. The extensor tendons are unremarkable. Longitudinal split tear of the peroneal brevis. Mild tendinosis of the peroneal longus, at the level of the distal lateral malleolus. Severe tendinosis of the distal Achilles tendon, with low grade interstitial tear. Ligaments: The anterior and the posterior tibiofibular ligaments are intact. The anterior and posterior talofibular ligaments are intact. The calcaneofibular ligament is intact. The deep portion of the deltoid ligament is unremarkable. Sinus tarsi: No fibrosis Plantar fascia: Mild thickening of the central cord, representing plantar fasciitis. Muscles: Normal in signal Bones: Mild marrow edema at the proximal diaphysis of the 4th metatarsal, without enhancement or fracture line, and to a lesser extent at the proximal 5th metatarsal diaphysis, nonspecific and may represent stress changes. No acute fracture. Posterior and plantar calcaneus enthesophyte. IMPRESSION: 1. Longitudinal split tear of the peroneal brevis. Mild tendinosis of the peroneal longus. 2. Severe tendinosis of the distal Achilles tendon with low grade interstitial tear. 3. Findings suggestive of plantar fasciitis. 4. Mild marrow edema of the proximal diaphysis of 4th metatarsal, and to a lesser extent the 5th metatarsal, nonspecific and may represent stress changes. Dictated by: Shilpi Solorzano M.D. on 04/03/2024 at 10:40 Approved by: Shilpi Solorzano M.D. on 04/03/2024 at 10:49
== END ==
PROVIDERS: Family Provider Student in an Organized Health Care Education/Training Program; PCP Student in an Organized Health Care Education/Training Program; Referring Provider Student in an Organized Health Care Education/Training Program; Visit Provider Student in an Organized Health Care Education/Training Program
DX: M67.879 Other specified disorders of synovium and tendon, unspecified ankle and foot (principal); S96.812A Strain of other specified muscles and tendons at ankle and foot level, left foot, initial encounter; M25.472 Effusion, left ankle
CPT/HCPCS: 73723; A9579

== ENCOUNTER 2024-08-14 11:55 | Emergency (ER) | payer BC, SELFPAY ==
[2024-08-14 12:02] VITALS: BP 119/68; PULSE 76; RESP 17; TEMP 36.4; O2SAT 100; BMI 42.3
--- NOTE | 2024-08-14 12:11 | DI.US.S_ITS ---
PROCEDURE: US PERIPH VENOUS LOW EXTREM LT INDICATIONS: PAIN TECHNIQUE: Real-time imaging, as well as color and pulse Doppler interrogation, were performed of the lower extremity deep veins from the inguinal ligament to the popliteal fossa, with documentation of the visualized calf veins. COMPARISON: None. FINDINGS: The common femoral, femoral, popliteal, and the visualized calf veins are normally compressible, and free of intraluminal thrombus. Color and pulse Doppler demonstrate normal phasic intraluminal flow. There is normal augmentation response to distal compression maneuver. IMPRESSION: No findings of lower extremity deep venous thrombosis. Dictated by: Nico Giron M.D. on 08/14/2024 at 12:51 Approved by: Nico Giron M.D. on 08/14/2024 at 12:52
--- NOTE | 2024-08-14 12:56 | ED.EXTPRO ---
HPI - Extremity Problem <Nesha Kat PA-C - Last Filed: 08/14/24 13:10> General Chief complaint: Extremity Problem,Nontraumatic Stated complaint: Numbness and coldness radiating down LT leg. Time Seen by Provider: 08/14/24 12:17 Source: patient Mode of arrival: Ambulatory History of Present Illness HPI Narrative: 44-year-old female with past medical history hyperlipidemia, ACL tear, hypertension, endometriosis, left knee pain presents to the ED with 2 days left lower leg numbness, pain. Patient has pre-existing left leg pain from an ACL tear and a meniscus issue. Patient is scheduled to have ACL reconstruction in September. Yesterday, patient started experiencing some numbness in addition to the pain from the left knee on down to the foot, on the lateral side. Patient called her surgeon who advised her to go to the ED to rule out a blood clot. No fever, chills, chest pain, shortness of breath. No trauma. Patient is able to bear weight walk. Related Data Home Medications Medication Instructions Recorded Confirmed Vitamin D3 1 cap PO DAILY 05/08/18 06/22/24 Turmeric/Curcumin See Rx Instructions .Route .COMPLEX 05/09/18 06/22/24 omega-3 fatty acids 1,000 mg 1,000 mg PO DAILY 08/18/18 06/22/24 capsule (Fish Oil Concentrate) multivitamin See Rx Instructions .Route .COMPLEX 10/03/19 06/22/24 melatonin 5 mg capsule mg PO .PRN 06/17/23 06/22/24 Previous Rx's Medication Instructions Recorded lidocaine 5 % topical patch 1 patch topical DAILY #30 ea 07/17/19 cyclobenzaprine 10 mg tablet 10 mg PO TID PRN Pain (Scale Score 06/08/22 1-3) #30 tabs albuterol sulfate 90 mcg/actuation 2 puff inhalation Q4-6H PRN 01/14/23 aerosol inhaler shortness of breath or wheezing #18 grams benzonatate 200 mg capsule 200 mg PO BID PRN cough #28 caps 11/08/23 fluticasone propionate 50 1 spray intranasal Q12H #16 grams 11/08/23 mcg/actuation nasal spray,suspension (Flonase Allergy Relief) inhalational spacing device #1 ea 11/08/23 (Aerochamber MV spacer) lisinopril 10 mg tablet 10 mg PO DAILY #90 tabs 12/01/23 amitriptyline 50 mg tablet 50 mg PO BEDTIME #90 tabs 05/01/24 promethazine 50 mg tablet 50 mg PO TID PRN nausea #60 tabs 05/01/24 hydrocodone 5 mg-acetaminophen 325 1 - 2 tab PO DAILY PRN pain #15 06/22/24 mg tablet tabs hydrocodone 5 mg-acetaminophen 325 1 - 2 tab PO DAILY PRN severe pain 06/22/24 mg tablet #15 tabs hydrocodone 5 mg-acetaminophen 325 1 tab PO BID PRN pain #15 tabs 06/22/24 mg tablet Allergies Allergy/AdvReac Type Severity Reaction Status Date / Time hydromorphone [From DILAUDID] Allergy Intermediate Headache Verified 08/14/24 12:02 and grinding teeth morphine [MORPHINE] Allergy Intermediate HIVES Verified 08/14/24 12:02 nortriptyline Allergy Intermediate severe Verified 08/14/24 12:02 anxiety buspirone AdvReac Intermediate Muscle pain Verified 08/14/24 12:02 gabapentin AdvReac Mild Drowsy Verified 08/14/24 12:02 Review of Systems <Nesha Kat PA-C - Last Filed: 08/14/24 13:10> Constitutional Constitutional: Denies chills, Denies fatigue, Denies fever(s), Denies frequent falls, Denies lethargy and Denies weakness Eyes Eyes: Denies change in vision, Denies eye discharge, Denies irritation and Denies loss of vision ENT Ears, Nose, Mouth, and Throat: Denies change in voice, Denies dizziness, Denies neck pain, Denies sore throat and Denies throat swelling Cardiovascular Cardiovascular: Denies chest pain, Denies irregular heart rhythm, Denies lightheadedness, Denies palpitations, Denies dyspnea, Denies dyspnea on exertion and Denies orthopnea Respiratory Respiratory: Denies cough, Denies dyspnea, Denies dyspnea on exertion and Denies wheezing Gastrointestinal Gastrointestinal: Denies abdominal pain, Denies change in bowel habits, Denies diarrhea, Denies nausea and Denies vomiting Musculoskeletal Musculoskeletal: Denies neck pain and Denies numbness Comments: Left lower leg numbness, pain Integumentary/Breasts Skin/Breast: Denies pruritus, Denies erythema, Denies rash and Denies wounds Neurologic Neurologic: Denies behavioral changes, Denies confusion, Denies dizziness, Denies frequent falls, Denies loss of vision, Denies numbness and Denies weakness Psychiatric Psychiatric: Denies anxiety, Denies behavioral changes, Denies confusion, Denies depression, Denies homicidal ideation and Denies suicidal ideation Endocrine Endocrine: Denies fatigue, Denies flushing and Denies palpitations Hematologic/Lymphatic Hematologic/Lymphatic: Denies easy bruising Allergic/Immunologic Allergic/Immunologic: Denies urticaria, Denies throat swelling and Denies wheezing Patient History <Nesha Kat PA-C - Last Filed: 08/14/24 13:10> Medical History (Updated 08/14/24 @ 13:04 by Nesha Kat PA-C) Uncomplicated opioid dependence Asymptomatic microscopic hematuria History of tobacco use Hx of migraines History of kidney stones Herniated nucleus pulposus, lumbar Sacral dysfunction Lumbar post-laminectomy syndrome Facet arthropathy, lumbar Fibromyalgia (~2015) Hx of endometriosis (Unknown) Carpal tunnel syndrome (Unknown) Arthritis (Unknown) Asthma (Unknown) Degenerative disc disease (Unknown) Shoulder pain (Unknown) Ovarian cyst Colitis Costochondritis Surgical History H/O laparoscopy H/O: Hx of laminectomy (Unknown) History of bilateral tubal ligation (Unknown) Hx of appendectomy (10/2017) Hx of abdominal hysterectomy (05/2013) Family History Grandmother Breast cancer Mother Hypertension Diabetes mellitus Father Kidney stones Social History marital status: unmarried,single number of children: 2 Smoking Status: Former smoker Tobacco: How many years used: 20 second hand exposure: Yes alcohol intake: former substance use type: does not use caffeine: Yes Type(s) of exercise: weight lifting and normal ROM and activity frequency: 3-4 times per week Smoking Status: Former smoker alcohol intake frequency: 0-2 drinks per day Exam <Nesha Kat PA-C - Last Filed: 08/14/24 13:10> Narrative Exam Narrative: Const General:?cooperative, healthy appearing and comfortable HENMT Head:?normal to inspection Ears:?hearing grossly normal bilaterally Nose:?external nose normal Face and sinus:?normal facial exam and sinuses nontender Mouth:?oral mucosae normal Throat:?posterior oropharynx normal Eyes General:?appearance normal, both eyes and all related structures Neck Neck:?normal visual inspection and no lymphadenopathy noted Resp Effort & Inspection:?normal respiratory effort Auscultation:?clear to auscultation bilaterally Cardio Rate:?regular rate Rhythm:?regular rhythm Musculoskeletal No tenderness to palpation of the left lower leg. No bruising. No deformities. There is full range of motion. Strength and sensation is intact. Patient does say that the sensation is somewhat diminished around the foot, however she does still have sensation. Patient is able to bear weight and walk. Neuro General:?patient alert, patient awake and patient oriented x3 Initial Vital Signs Initial Vital Signs: Vital Signs Temperature 97.5 F L 08/14/24 12:02 Pulse Rate 76 08/14/24 12:02 Respiratory Rate 17 08/14/24 12:02 Blood Pressure 119/68 08/14/24 12:02 Pulse Oximetry 100 08/14/24 12:02 Oxygen Delivery Method Room Air 08/14/24 12:02 <Keily Simental MD - Last Filed: 08/15/24 08:32> Initial Vital Signs Initial Vital Signs: Vital Signs Temperature 97.5 F L 08/14/24 12:02 Pulse Rate 76 08/14/24 12:02 Respiratory Rate 17 08/14/24 12:02 Blood Pressure 119/68 08/14/24 12:02 Pulse Oximetry 100 08/14/24 12:02 Oxygen Delivery Method Room Air 08/14/24 12:02 Course <Nesha Kat PA-C - Last Filed: 08/14/24 13:10> Orders Ordered: ED Orders 08/14/24 12:11 perip venous low extrem lt Stat Vital Signs Vital signs: Vital Signs - 8 hr 08/14/24 12:02 Temperature 97.5 F L Pulse Rate 76 Respiratory Rate 17 Blood Pressure 119/68 Pulse Oximetry 100 Oxygen Delivery Method Room Air <Keily Simental MD - Last Filed: 08/15/24 08:32> Orders Ordered: ED Orders 08/14/24 12:11 perip venous low extrem lt Stat Vital Signs Vital signs: Vital Signs - 8 hr 08/14/24 12:02 Temperature 97.5 F L Pulse Rate 76 Respiratory Rate 17 Blood Pressure 119/68 Pulse Oximetry 100 Oxygen Delivery Method Room Air MDM - Extremity (Nontraumatic) <Nesha Kat PA-C - Last Filed: 08/14/24 13:10> MDM Narrative Medical decision making narrative: 44-year-old female with past medical history hyperlipidemia, ACL tear, hypertension, endometriosis, left knee pain presents to the ED with 2 days left lower leg numbness, pain. Ultrasound was obtained with no findings of lower extremity DVT. Discussed findings with patient. Recommend patient surgery back with her surgeon for further evaluation and treatment. ED return precautions discussed with patient. Patient verbalized understanding. Medical records reviewed: Yes Discharge Plan Departure Patient Disposition: Home Clinical Impression: Left leg pain Instructions: DI for Leg Pain Activity Restrictions/Additional Instructions: You were seen in the ED today for left-sided leg pain and numbness. The ultrasound did not show any blood clots/DVT. It appears that your symptoms are due to an exacerbation of your existing leg issues including the ACL. Please [place] back with your surgeon for further evaluation and treatment. Return to the ED if you have worsening symptoms. Prescriptions: No Action Turmeric/Curcumin See Rx Instructions .ROUTE .COMPLEX Patient Comments: 3 TABS PO QDAY Rx Instructions: 3 TABS PO QDAY omega-3 fatty acids [Fish Oil Concentrate] 1,000 mg capsule 1,000 mg PO DAILY hydrocodone-acetaminophen 5-325 mg tablet 1 - 2 tab PO DAILY PRN (Reason: pain) Qty: 15 0RF hydrocodone-acetaminophen 5-325 mg tablet 1 - 2 tab PO DAILY PRN (Reason: severe pain) Qty: 15 0RF Hold Instructions: change quantity to #10 with next fill hydrocodone-acetaminophen 5-325 mg tablet 1 tab PO BID PRN (Reason: pain) Qty: 15 0RF melatonin 5 mg capsule PO .PRN (DME) Aerochamber MV Spacer See Rx Instructions .ROUTE .MEDSUPPLY Qty: 1 0RF Rx Instructions: As directed benzonatate 200 mg capsule 200 mg PO BID PRN (Reason: cough) Qty: 28 0RF fluticasone propionate [Flonase Allergy Relief] 50 mcg/actuation spray,suspension 1 spray intranasal Q12H Qty: 16 0RF Rx Instructions: administer into each nostril lidocaine 5 % adhesive patch,medicated 1 patch TOP DAILY Qty: 30 0RF Rx Instructions: leave on most painful area for 12 hrs to 24 hours cyclobenzaprine 10 mg tablet 10 mg PO TID PRN (Reason: Pain (Scale Score 1-3)) Qty: 30 11RF lisinopril 10 mg tablet 10 mg PO DAILY Qty: 90 3RF amitriptyline 50 mg tablet 50 mg PO BEDTIME Qty: 90 3RF promethazine 50 mg tablet 50 mg PO TID PRN (Reason: nausea) Qty: 60 11RF albuterol sulfate 90 mcg/actuation HFA aerosol inhaler 2 puff INHALATION Q4-6H PRN (Reason: shortness of breath or wheezing) Qty: 18 3RF multivitamin See Rx Instructions .Route .COMPLEX Patient Comments: 3 TABS PO QDAY Rx Instructions: 3 TABS PO QDAY Vitamin D3 1 cap PO DAILY Referrals: Clarisse Abad MD [Primary Care Provider] - Stand Alone Forms: Patient Portal/API/Survey ED Sign-out <Keily Simental MD - Last Filed: 08/15/24 08:32> Cosign ED Attending Cosignature Attestation: I was immediately available in the department for consultation throughout this patient's visit. Keily Simental MD
== END 2024-08-14 13:10 | disposition home or self-care (01) ==
PROVIDERS: Emergency Provider Student in an Organized Health Care Education/Training Program; Family Provider Student in an Organized Health Care Education/Training Program; PCP Student in an Organized Health Care Education/Training Program
DX: M79.605 Pain in left leg (principal); R20.2 Paresthesia of skin
CPT/HCPCS: 93971; 99283

== ENCOUNTER → 2024-09-11 16:39 | Outpatient (CLI) | payer BC, SELFPAY | PROVIDERS: Family Provider Student in an Organized Health Care Education/Training Program; PCP Student in an Organized Health Care Education/Training Program; Visit Provider Physician Assistant Surgical | DX: R30.0 Dysuria (principal) | CPT/HCPCS: 87086 ==

== ENCOUNTER → 2024-12-10 10:07 | Outpatient (CLI) | payer BC, SELFPAY ==
[2024-12-10 11:03] LABS: Influenza A - CEPHEID Flu A NEGATIVE (NEGATIVE); Influenza B - CEPHEID Flu B NEGATIVE (NEGATIVE); Respiratory Syncytial Virus Negative (Negative)
[2024-12-10 11:04] LABS: COVID-19 CEPHEID 4-PLEX PCR Negative (Negative)
== END ==
PROVIDERS: PCP Student in an Organized Health Care Education/Training Program; Referring Provider Nurse Practitioner Family; Visit Provider Nurse Practitioner Family
DX: R05.1 Acute cough (principal); R30.0 Dysuria
CPT/HCPCS: 0241U; 87070; 87086; 87147

== ENCOUNTER → 2024-12-22 09:47 | Outpatient (CLI) | payer BC, SELFPAY ==
[2024-12-25 09:46] LABS: Add Manual Diff / Slide Review NO; Basophils Absolute Auto 100 /uL (0-100); Basophils Percent Auto 0.8 % (0-2); Eosinophils Absolute Auto 300 /uL (0-450); Eosinophils Percent Auto 4.4 % (2-4); Hematocrit 41.9 % (36-46); Lymphocytes Absolute Auto 2100 /uL (1100-4500); Lymphocytes Percent Auto 28.4 % (25-40); Mean Corpuscular HGB Conc 33.5 % (30-36); Mean Corpuscular Hemoglobin 29.9 PG (26-34); Mean Corpuscular Volume 89.5 fL (80-100); Monocytes Absolute Auto 400 /uL (0-900); Monocytes Percent Auto 4.8 % (3-14); Neutrophils Absolute Auto 4600 /uL (1500-7000); Neutrophils Percent Auto 61.6 % (50-75); Platelet Count 284 X10^3/uL (150-400); Red Blood Cell Count 4.68 X10^6/uL (4.0-5.2); Red Cell Distribution Width 13.9 % (11.6-14.8); White Blood Cell Count 7.4 X10^3/uL (4.5-11.0)
[2024-12-25 09:56] LABS: Hemoglobin A1C% w Est Avg Glu 5.3 % (4.0-6.0)
[2024-12-25 10:20] LABS: Alanine Aminotransferase 32 IU/L (<35); Albumin 4.4 g/dL (3.5-5.0); Albumin Globulin Ratio 1.6 (1.0-2.8); Alkaline Phosphatase 80 U/L (38-126); Aspartate Aminotransferase 26 IU/L (14-36); BUN Creatinine Ratio 25.7 (6-22); Bilirubin Total 0.5 mg/dL (0.2-1.3); Blood Urea Nitrogen 18 mg/dL (7-17); Calcium 9.2 mg/dL (8.4-10.2); Carbon Dioxide 26 mmol/L (22-32); Chloride 106 mmol/L (98-107); Cholesterol 196 mg/dL (140-199); Estimated Glomerular Filt Rate > 60 mL/min (>60); Globulin 2.8 g/dL (1.7-4.1); Glucose 89 mg/dL (70-99); HDL Cholesterol 57 mg/dL (40-60); HEMOLYSIS 18 (0-50); LDL Cholesterol Calculated 111 mg/dL (<100); Potassium 4.8 mmol/L (3.4-5.1); Sodium 139 mmol/L (137-145); Total Protein 7.2 g/dL (6.3-8.2); Triglycerides 138 mg/dL (35-150)
[2024-12-25 10:49] LABS: Thyroid Stimulating Hormone 1.66 uIU/mL (0.47-4.68)
== END ==
PROVIDERS: PCP Student in an Organized Health Care Education/Training Program; Referring Provider Student in an Organized Health Care Education/Training Program; Visit Provider Student in an Organized Health Care Education/Training Program
DX: I10 Essential (primary) hypertension (principal); E66.01 Morbid (severe) obesity due to excess calories; G47.33 Obstructive sleep apnea (adult) (pediatric); Z13.1 Encounter for screening for diabetes mellitus; Z79.899 Other long term (current) drug therapy; E78.5 Hyperlipidemia, unspecified
CPT/HCPCS: 36415; 80053; 80061; 83036; 84443; 85025

== ENCOUNTER → 2024-12-25 09:04 | Outpatient (CLI) | payer BC, SELFPAY ==
[2024-12-25 10:07] LABS: Creatinine Urine Random 16.82 mg/dL
[2024-12-25 10:13] LABS: Microalbumin Urine Random < 0.6 mg/dL (0-1.6)
== END ==
PROVIDERS: PCP Student in an Organized Health Care Education/Training Program; Referring Provider Student in an Organized Health Care Education/Training Program; Visit Provider Student in an Organized Health Care Education/Training Program
DX: I10 Essential (primary) hypertension (principal)
CPT/HCPCS: 82043; 82570

== ENCOUNTER → 2025-07-01 12:28 | Outpatient (CLI) | payer OTHER, SELFPAY ==
[2025-07-01 12:50] LABS: Appearance Urine UA CLEAR; Bilirubin Urine UA NEGATIVE (NEGATIVE); Color Urine UA YELLOW; Glucose Urine UA NEGATIVE (Negative); Ketones Urine UA NEGATIVE (NEGATIVE); Leukocyte Esterase Urine UA TRACE (NEGATIVE); Nitrite Urine UA NEGATIVE (Negative); Occult Blood Urine UA NEGATIVE (Negative); Protein Urine UA NEGATIVE (Negative); Specific Gravity Urine UA <=1.005 (1.000-1.035); Urobilinogen Urine UA 0.2 E.U./dL (0.2)
[2025-07-01 12:52] LABS: pH Urine UA 5.5 (4.5-8.0)
[2025-07-01 12:53] LABS: Culture Indicated Urine Cult Not Indicated
== END ==
PROVIDERS: PCP Student in an Organized Health Care Education/Training Program; Visit Provider Student in an Organized Health Care Education/Training Program
DX: N89.8 Other specified noninflammatory disorders of vagina (principal); N39.0 Urinary tract infection, site not specified
CPT/HCPCS: 81001; 87210

== ENCOUNTER → 2025-07-19 15:21 | Outpatient (CLI) | payer OTHER, SELFPAY ==
--- NOTE | 2025-07-19 15:22 | DI.MG.S_ITS ---
MM screening mammo BI: 07/19/2025. BI-RADS: 1 CLINICAL: 45-year old female for bilateral screening mammogram. Tyrer-Cuzick lifetime risk of 8.0%. No personal or first-degree family history of breast cancer. Current reported family history of breast cancer: paternal grandmother and maternal aunt. PRIOR EXAMS 01/06/2024, 11/06/2022, 09/19/2021. MAMMOGRAPHY TECHNIQUE: 2D and 3D (tomosynthesis) digital mammographic views obtained, with additional images as needed for full coverage. Current study was also evaluated with a Computer Aided Detection (CAD) system. DENSITY B. There are scattered areas of fibroglandular density. MAMMOGRAPHY FINDINGS Bilateral: No suspicious mass, asymmetry, microcalcification, or other abnormality seen. IMPRESSION: * No evidence of malignancy. RECOMMENDATIONS Bilateral * Annual screening mammography. OVERALL ASSESSMENT CATEGORY BI-RADS-1: Negative. The [employer] recommends annual screening mammography beginning at age 40 for women with average risk of breast cancer. ELECTRONICALLY SIGNED: Siria Moss M.D. on 07/21/2025 at 10:39:18 PM PT Interpreting Station ID: [id number]
== END ==
LOC: MAMMO 15:21
PROVIDERS: PCP Student in an Organized Health Care Education/Training Program; Referring Provider Student in an Organized Health Care Education/Training Program; Visit Provider Student in an Organized Health Care Education/Training Program
DX: Z12.31 Encounter for screening mammogram for malignant neoplasm of breast (principal); Z80.3 Family history of malignant neoplasm of breast
CPT/HCPCS: 77063; 77067